=== PATIENT | male | born 2000 | race Caucasian/White ===

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

== ENCOUNTER 2022-06-15 12:53 | Observation (INO) | payer OTHER, SELFPAY ==
[2022-06-15] VITALS (14 sets, daily range): BP systolic 106–141; BP diastolic 60–81; PULSE 54–80; RESP 14–18; TEMP 36.6–37; O2SAT 99–100; BMI 20.5
[2022-06-15 13:16] LABS: Bacteria 0 SEEN /hpf (None Seen); Mucous, Urine 0 SEEN /hpf (<or=2+); Red Blood Cells-Urine 0 SEEN /hpf (0-5); Squamous Epithelial Cells - UA 0 SEEN /hpf (0-5)
[2022-06-15 13:19] LABS: Absolute Lymphocyte Count 1.49 X10^3/uL (0.83-4.51); Absolute Neutrophil Count 14.3 X10^3/uL (2.0-7.7); Basophil# 0.07 X10^3/uL; Basophil% 0.4 % (0-1); Eosinophil# 0.24 X10^3/uL; Eosinophils% 1.3 % (0-5); Hematocrit 48.8 % (40-54); Hemoglobin 16.4 g/dL (13.0-16.5); Lymphocyte # 1.49 X10^3/ul (0.83-4.51); Lymphocyte % 8.2 % (19-41); Mean Corp Hgb Conc 33.6 g/dL (32-36); Mean Corpuscular Hgb 29.5 pg (27.0-32.0); Mean Corpuscular Volume 87.8 fL (80-94); Mean Platelet Vol. 9.5 fl (6.2-12.0); Monocyte# 1.97 X10^3/uL; Monocyte% 10.9 % (0-10); NRBC Flagged by Analyzer 0 % (0-5); Neutrophil # 14.29 X10^3/uL (2.7-7.7); Neutrophil % 78.9 % (47-70); POSITIVE DIFFERENTIAL YES; Platelet Count 272 K/mm3 (150-450); RBC Distribution Width CV 13.2 % (11.6-14.6); RBC Distribution Width SD 42.8 fl (35.1-43.9); Red Blood Count 5.56 M/mm3 (4.6-6.2); White Blood Count 18.1 K/mm3 (4.4-11.0)
[2022-06-15 13:22] LABS: Differential Indicated SCAN CRITERIA MET
[2022-06-15 13:27] LABS: Color, Urine Yellow (Yellow); Glucose, Dipstick Normal (Normal); Ketone-Dipstick 15 mg/dl (Negative); Leukocyte Esterase-Dipstick 25 /ul (Negative); Nitrite-Dipstick Negative (Negative); Occult Blood-Urine Negative /ul (Negative); Protein-Dipstick 30 mg/dl (Negative); Urine Urobilinogen 1 mg/dl (Normal)
[2022-06-15 13:32] LABS: Urine Bilirubin Dipstick 1 mg/dL (Negative); Urine Clarity Clear (Clear)
[2022-06-15 13:33] LABS: White Blood Cells 0-5 SEEN /hpf (0-5)
[2022-06-15 13:35] LABS: Anion Gap 9 (5-15); BUN 14 mg/dL (7-18); BUN/Creat Ratio 11.7 RATIO (10-20); Calcium,Total 9.5 mg/dL (8.5-10.1); Chloride 104 mmol/L (98-107); EST Glomerular Filtration Rate 82 mL/min (>60); Est Glom Filt Rate - Afr Amer 99 mL/min (>60); Glucose 86 mg/dL (74-106); Potassium 3.7 mmol/L (3.5-5.1); Sodium Level 141 mmol/L (136-145)
[2022-06-15 13:40] LABS: Platelet Estimate ADEQUATE (ADEQ); Red Cell Morphology N CYTIC NORMAL (NORM C&C)
--- NOTE | 2022-06-15 14:09 | CT_ITS ---
STUDY: CT ABDOMEN AND PELVIS WITH CONTRAST REASON FOR EXAM: Male, 21 years old. RLQ abd pain RADIATION DOSAGE (If Supplied By Facility): CTDIvol = ( 10.97 ) mGy, DLP = ( 449.34 ) mGycm TECHNIQUE: Transaxial images were obtained from the dome of the diaphragm to the symphysis pubis without oral contrast. IV 100mL Isovue-300 was administered. Sagittal and coronal images were reconstructed. Individualized dose optimization techniques were used for this CT. COMPARISON: Comparison is made with prior examination dated 02/27/2013. FINDINGS: The visualized lung bases are unremarkable. The visualized portions of the heart are within normal limits. Normal liver. Normal gallbladder and extrahepatic biliary system. Normal spleen. Normal pancreas. Normal bilateral adrenal glands. Normal right kidney. Normal left kidney. Normal visualized stomach. Normal small intestine. Normal colon. There is non-visualization of the appendix. Normal abdominal aorta. Normal inferior vena cava. Normal retroperitoneum. Normal urinary bladder. Normal abdominal wall. Straightening of the normal lumbar lordosis. CT/Abdomen/Pelvis W IV Cont ONLY IMPRESSION: Normal enhanced CT of the abdomen and pelvis. Electronically Signed: Sandip العلي MD at 14:42 EDT ,
--- NOTE | 2022-06-15 14:10 | ED.VIS.GI ---
HPI HPI - GI History of Present Illness Chief Complaint: Abd Pain Narrative Narrative: Patient who denies significant past medical history presents with bilateral lower quadrant abdominal pain that began yesterday morning, right greater than left. He denies any fevers but maybe has occasional chills. No nausea or vomiting. He had last normal bowel movement yesterday. He denies any dysuria or hematuria. No true exacerbating or alleviating factors but he states when he stretches that area it may hurt him more. He denies any injury to the area. PFSH PFSH Medical History no medical history Home Medications naproxen 500 mg tablet 500 mg PO BID PRN #20 tabs 02/26/19 [Rx Last Taken Unknown] Allergy/AdvReac Type Severity Reaction Status Date / Time No Known Allergies Allergy Verified 06/15/22 12:53 Surgical History no surgical history Social History Smoking Status: Never smoker ROS ROS ED ROS Narrative Constitutional: No fever, subjective chills. HEENT: No sore throat. No neck pain. No loss of vision. No rhinorrhea. Cardiovascular: No chest pain. No palpitations. No pedal edema. Respiratory: No cough, no shortness of breath. Abdominal: Bilateral lower quadrant abdominal pain, worse abdominal pain and right lower quadrant. No nausea. No vomiting. Genitourinary: No dysuria. No hematuria. Musculoskeletal: No myalgias. No arthralgias. Neurologic: No headaches. No dizziness. No lightheadedness. Skin: No rash. No change in color. Psychiatric: No depression. No anxiety. EXAM Physical Exam Narrative Exam Narrative: Afebrile. Vital signs noted. HEENT: Normocephalic. Atraumatic. PERRL, EOMI. Neck soft and supple. No point tenderness or step off. Cardiovascular: Regular rate and rhythm. No murmurs, rubs, or gallops appreciated. Respiratory: No tachypnea. Lungs clear to auscultation bilaterally. Gastrointestinal: Abdomen soft, mild tenderness to palpation right lower quadrant with normoactive bowel sounds. No rebound or guarding. Negative Rovsing sign. No peritoneal signs. Neurological: Awake. Alert. Nonfocal, nonlateralizing. Skin: No rash. Normal color. No pallor. Musculoskeletal: No pedal edema. Full range of motion extremities. Const Vital Signs: 06/15/22 12:53 06/15/22 15:00 06/15/22 15:39 Temperature 97.8 F 98.5 F Temperature Source Temporal Oral Pulse Rate 63 54 L Respiratory Rate 14 16 18 Blood Pressure 130/81 H 118/69 Blood Pressure Mean 97 85 Blood Pressure Source Monitor Blood Pressure Position Semi-Fowlers Blood Pressure Location Right Arm Pulse Ox 100 99 Oxygen Delivery Method Room Air Room Air MDM MDM MDM Narrative Medical decision making narrative: Initial labs were drawn. He has an elevated white count of 18.1, hemoglobin 16.4 with hematocrit 48.8. Normal platelet count of 272. Electrolyte panel is grossly unremarkable. Urinalysis is negative for infection. Given his leukocytosis and right lower quadrant abdominal pain, I will obtain a CT of the abdomen and pelvis with IV contrast to rule out appendicitis. CT has returned. The appendix is nonvisualized but the CT is otherwise normal. Upon repeat examination, patient is still having pain in the right lower quadrant of his abdomen. Patient was discussed with Dr. Messina who has evaluated the patient in the ED. Patient will be taken to the OR for laparoscopic appendectomy. I ordered morphine for the patient for analgesia. Disposition is admit/to the OR. Patient is in stable condition. Lab Data Attestation: I reviewed the patient's lab results. Labs: Laboratory Results - last 24 hr 06/15/22 06/15/22 06/15/22 13:05 13:05 13:09 WBC 18.1 H RBC 5.56 Hgb 16.4 Hct 48.8 MCV 87.8 MCH 29.5 MCHC 33.6 RDW Std Deviation 42.8 RDW Coeff of Sherley 13.2 Plt Count 272 MPV 9.5 Immature Gran % (Auto) 0.300 Neut % (Auto) 78.9 H Lymph % (Auto) 8.2 L [place] % (Auto) 10.9 H Eos % (Auto) 1.3 Baso % (Auto) 0.4 Absolute Neuts (auto) 14.3 H Absolute Lymphs (auto) 1.49 Nucleated RBC % 0 Diff Path Review May foll Platelet Estimate ADEQUATE RBC Morphology N CYTIC Sodium 141 Potassium 3.7 Chloride 104 Carbon Dioxide 28.0 Anion Gap 9 BUN 14 Creatinine 1.20 Estim Creat Clear Calc 115.00 Est GFR (MDRD) Af Amer 99 Est GFR (MDRD) Non-Af 82 BUN/Creatinine Ratio 11.7 Glucose 86 Calcium 9.5 Urine Color Yellow Urine Clarity Clear Urine pH 6.0 Ur Specific [place] 1.020 Urine Protein 30 H Urine Glucose (UA) Normal Urine Ketones 15 H Urine Occult Blood Negative Urine Nitrite Negative Urine Bilirubin 1 H Urine Urobilinogen 1 H Ur Leukocyte Esterase 25 H Urine RBC 0 SEEN Urine WBC 0-5 SEEN Ur Squamous Epith Cells 0 SEEN Urine Bacteria 0 SEEN Urine Mucus 0 SEEN Radiography Diagnostic Testing: Clinical Impression(s) from Imaging Studies Abdomen/Pelvis CT 06/15/22 14:09 IMPRESSION: Normal enhanced CT of the abdomen and pelvis. Electronically Signed: Sandip العلي MD at 14:42 EDT , Discharge Plan Dx/Rx/DC Orders Clinical Impression: Acute appendicitis, Leukocytosis, Abdominal pain Disposition Disposition: Acute Care Hospital [facility]
--- NOTE | 2022-06-15 14:19 | CM.ED ---
TOÑA Note TOÑA noted on tracker that patient had no PCP. Patient said that he is in the [employer] and they send me to all kinds of doctors. TOÑA provided patient with [facility]. No further issues or concerns voiced at this time. Plan: Resources provided Mandi BOYLE
--- NOTE | 2022-06-15 15:38 | NURSING ---
SURGERY TOSHIA DELANEY
--- NOTE | 2022-06-15 15:41 | HP.PCM.SX_ITS ---
HPI - General HPI Narrative MICHELLE PAGE, is a 21 M who presents with right lower quadrant pain. Patient reports that yesterday he was feeling generalized abdominal pain and that he vomited into the evening. This morning the pain localized to the right lower quadrant he was having chills. He denies any diarrhea or constipation. He says the pain is in the right lower quadrant. It does not radiate. PFSH Medical History no medical history Home Medications naproxen 500 mg tablet 500 mg PO BID PRN #20 tabs 02/26/19 [Rx Last Taken Unknown] Allergy/AdvReac Type Severity Reaction Status Date / Time No Known Allergies Allergy Verified 06/15/22 12:53 Surgical History no surgical history Social History Smoking Status: Never smoker ROS Constitutional Constitutional: Reports chills; Denies anorexia, fatigue or fever(s) Eyes Eyes: Denies blurry vision ENT HEENT: Denies abnormal hearing Cardiovascular Cardiovascular: Denies chest pain Respiratory/Chest Respiratory/Chest: Denies cough, dyspnea or wheezing Gastrointestinal Gastrointestinal: Reports abdominal pain, nausea and vomiting; Denies constipation, diarrhea or dysphagia Genitourinary Genitourinary: Denies change in urinary stream Musculoskeletal Musculoskeletal: Denies abnormal gait Integumentary Integumentary: Denies jaundice Neurologic Neurologic: Denies abnormal gait Psychiatric Psychiatric: Denies anxiety Endocrine Endocrinology: Denies flushing Hematologic/Lymphatic Hematologic/Lymphatic: Denies easy bleeding Vital Signs Vital Signs Vital Signs: 06/15/22 12:53 06/15/22 15:00 Temperature 97.8 F Temperature Source Temporal Pulse Rate 63 Respiratory Rate 14 16 Blood Pressure 130/81 H Blood Pressure Mean 97 Pulse Ox 100 Oxygen Delivery Method Room Air Weight Weight: 182 lb 8.684 oz Body Mass Index (BMI) 20.5 Physical Exam Const oriented x3 Resp normal respiratory effort Cardio regular rate and regular rhythm GI soft to palpation Palpation: tender RLQ and Rovsing's sign Extremity normal to inspection Results Lab / Micro Data Result Diagrams: 06/15/22 13:05 06/15/22 13:05 Labs: Laboratory Results - last 24 hr 06/15/22 13:05: WBC 18.1 H, RBC 5.56, Hgb 16.4, Hct 48.8, MCV 87.8, MCH 29.5, MCHC 33.6, RDW Std Deviation 42.8, RDW Coeff of Sherley 13.2, Plt Count 272, MPV 9.5, Immature Gran % (Auto) 0.300, Neut % (Auto) 78.9 H, Lymph % (Auto) 8.2 L, [place] % (Auto) 10.9 H, Eos % (Auto) 1.3, Baso % (Auto) 0.4, Absolute Neuts (auto) 14.3 H, Absolute Lymphs (auto) 1.49, Nucleated RBC % 0, Diff Path Review January foll, Platelet Estimate ADEQUATE, RBC Morphology N CYTIC 06/15/22 13:05: Sodium 141, Potassium 3.7, Chloride 104, Carbon Dioxide 28.0, Anion Gap 9, BUN 14, Creatinine 1.20, Estim Creat Clear Calc 115.00, Est GFR (MDRD) Af Amer 99, Est GFR (MDRD) Non-Af 82, BUN/Creatinine Ratio 11.7, Glucose 86, Calcium 9.5 06/15/22 13:09: Urine Color Yellow, Urine Clarity Clear, Urine pH 6.0, Ur Specific [place] 1.020, Urine Protein 30 H, Urine Glucose (UA) Normal, Urine Ketones 15 H, Urine Occult Blood Negative, Urine Nitrite Negative, Urine Bilirubin 1 H, Urine Urobilinogen 1 H, Ur Leukocyte Esterase 25 H, Urine RBC 0 SEEN, Urine WBC 0-5 SEEN, Ur Squamous Epith Cells 0 SEEN, Urine Bacteria 0 SEEN, Urine Mucus 0 SEEN Radiology Impression Abdomen/Pelvis CT 06/15/22 14:09 IMPRESSION: Normal enhanced CT of the abdomen and pelvis. Electronically Signed: Sandip العلي MD at 14:42 EDT , Assessment & Plan Assessment/Plan (1) Acute appendicitis: PLAN: Patient has elevated white count and story consistent with acute appendicitis. CT scan did not visualize the appendix. This is likely due to his thin body habitus. Patient has nausea vomiting and elevated white count with positive Rovsing side and migration of abdominal pain to right lower quadrant. All of these things are consistent with acute appendicitis and I recommended laparoscopic appendectomy. I discussed the procedure in detail with the patient. I discussed the risks including but limited to bleeding, infection, injury to surrounding organs such as the bowel, bladder, ureter. Patient understands the risks and is willing to proceed with laparoscopic appendectomy. He will be given antibiotics and taken to surgery this evening. Tyson Messina MD Pager: [facility] [address] [place] [address] Office:
[2022-06-15] MEDS: Morphine 4 MG/ML Syringe IV (15:47)
--- NOTE | 2022-06-15 16:00 | APP_PTH ---
PATIENT: MICHELLE PAGE LOC: MS3 U#:[id number] AGE/SX: 21/M ROOM: MS311 RE06/15/[address]: Dr. Tyson Messina MD : 2000 BED: 1 DIS: 06/16/2022 SPEC #: [id number] RECD: 06/18/22 07:29 STATUS: EARL GREGGAnna #: [id number] MIAN: 06/15/22 16:[address]: Tyson Messina DEPT: SURGICAL PATHOLOGY RECD BY: Sebastien Dixon ENTERED: 06/18/22 08:08 SP TYPE: APPENDIX OT DR: No Primary Care Phys Tissues: Appendix, NOS Procedures: Surgery Specimen Level III HEADER OPERATION: Laparoscopic appendectomy PRE-OP DIAGNOSIS: Acute appendicitis TISSUE SUBMITTED: Appendix MICROSCOPIC DIAGNOSIS Appendix, appendectomy: Acute ruptured appendicitis and periappendicitis. ZAKIA:[email or web address] 06/19/2022 MICROSCOPIC DESCRIPTION Slides are reviewed. GROSS DESCRIPTION Received in fixative is one container labeled with the patient's name and designated appendix. The specimen consists of a J-shaped appendix measuring 6.5 cm in length and up to 1 cm in diameter. The attached periappendiceal adipose tissue measures up to 1 cm in width. The serosal surface is covered with akbar, purulent exudate. No obvious perforation is identified. The lumen does not contain any fecalith. Arabic Translator sections are submitted in one cassette. / SJ:rg 06/18/2022 :2 CPT: 20821
--- NOTE | 2022-06-15 16:46 | OP.PCM_ITS ---
Report of Operation Date of Procedure: 06/15/22 Pre-Operative Diagnosis: Acute appendicitis Post-Operative Diagnosis: Same Surgery/Procedure Performed:: Laparoscopic appendectomy Description of Surgical Findings:: Inflamed appendix, wound class III Specimen's removed: Appendix Description of Procedure: The patient was brought into the operating room and general anesthesia was induced. The left arm was tucked and the abdomen was prepped and draped in usual sterile fashion. A small midline incision was made superior to the umbilicus and deepened to the level of the fascia. The fascia was elevated and incised. The peritoneum was also elevated and incised. A finger sweep was performed and a balloon trocar was placed into the abdomen and inflated. The abdomen was insufflated to 15 mmHg and the camera was inserted and the abdomen was inspected for any injuries upon entering the abdomen. There were none. The patient was placed in Trendelenburg position and a 5 mm ports placed in the left lower quadrant and suprapubic areas under direct visualization. Next using atraumatic bowel graspers the appendix was identified. The appendix was grasped and elevated and Enseal was used to take down the mesoappendix. A stapler was used to come across the base of the appendix. The appendix was then placed in Endo Catch bag and removed through the umbilical incision. The staple line was inspected and found to be hemostatic and intact. The 2 5 mm ports are removed under direct visualization. The balloon trocar was deflated and removed and all the air was removed from the abdomen. The umbilical incision fascia was closed with an 0 Vicryl [id number] suture. The incisions were then irrigated with saline and dried. Local anesthetic was injected into the incision sites. The skin incisions were then closed with interrupted 4-0 Monocryl suture and Steri- Strips. Bandages were applied and the patient was awoken and taken to PACU in stable condition. Patient tolerated the procedure well. Admit VTE Documentation VTE Mechan Device Prophylaxis: SCD's
[2022-06-15] MEDS: 0.9% Normal Saline 1,000 ML 60 ML IV (17:04)
[2022-06-15] MEDS: Acetaminophen 325 MG Tablet 650 MG PO (19:16)
[2022-06-15] MEDS: oxyCODONE 5 MG Tablet PO ×2 (19:17→22:37)
[2022-06-16] MEDS: Ondansetron 4 MG/2 ML Vial IV (00:13)
[2022-06-16 02:09] VITALS: BP 122/64; PULSE 54; RESP 16; TEMP 36.8; O2SAT 100
[2022-06-16 06:00] VITALS: BP 109/56; PULSE 60; RESP 16; TEMP 37.2; O2SAT 99
[2022-06-16 06:09] VITALS: BP 109/56; PULSE 60; RESP 16; TEMP 37.2; O2SAT 99
--- NOTE | 2022-06-16 08:18 | PN.SURG_ITS ---
Subjective Subjective Patient is doing well with no issues. Objective Data Objective Data Vital Signs: Vital Signs Temp Pulse Resp BP Pulse Ox O2 Del Method 98.9 F 60 16 109/56 L 99 Room Air 06/16/22 06:09 06/16/22 06:09 06/16/22 06:09 06/16/22 06:09 06/16/22 06:09 06/16/22 06:09 Oxygen Delivery Method Room Air Weight: 182 lb 8.684 oz Body Mass Index (BMI) 20.5 Intake & Output: Intake and Output for Last 24 Hours 06/14/22 06/15/22 06/16/22 23:59 23:59 23:59 Intake Total 50 / 290 240 / 240 Output Total 500 / 500 Balance 50 / 290 -260 / -260 Lab / Micro Data Result Diagrams: 06/15/22 13:05 06/15/22 13:05 Labs: Laboratory Results - last 24 hr 06/15/22 13:05: WBC 18.1 H, RBC 5.56, Hgb 16.4, Hct 48.8, MCV 87.8, MCH 29.5, MCHC 33.6, RDW Std Deviation 42.8, RDW Coeff of Sherley 13.2, Plt Count 272, MPV 9.5, Immature Gran % (Auto) 0.300, Neut % (Auto) 78.9 H, Lymph % (Auto) 8.2 L, [place] % (Auto) 10.9 H, Eos % (Auto) 1.3, Baso % (Auto) 0.4, Absolute Neuts (auto) 14.3 H, Absolute Lymphs (auto) 1.49, Nucleated RBC % 0, Diff Path Review January foll, Platelet Estimate ADEQUATE, RBC Morphology N CYTIC 06/15/22 13:05: Sodium 141, Potassium 3.7, Chloride 104, Carbon Dioxide 28.0, Anion Gap 9, BUN 14, Creatinine 1.20, Estim Creat Clear Calc 115.00, Est GFR (MDRD) Af Amer 99, Est GFR (MDRD) Non-Af 82, BUN/Creatinine Ratio 11.7, Glucose 86, Calcium 9.5 06/15/22 13:09: Urine Color Yellow, Urine Clarity Clear, Urine pH 6.0, Ur Specific [place] 1.020, Urine Protein 30 H, Urine Glucose (UA) Normal, Urine Ketones 15 H, Urine Occult Blood Negative, Urine Nitrite Negative, Urine Bilirubin 1 H, Urine Urobilinogen 1 H, Ur Leukocyte Esterase 25 H, Urine RBC 0 SEEN, Urine WBC 0-5 SEEN, Ur Squamous Epith Cells 0 SEEN, Urine Bacteria 0 SEEN, Urine Mucus 0 SEEN Radiography Diagnostic Testing: Radiology Impression Abdomen/Pelvis CT 06/15/22 14:09 IMPRESSION: Normal enhanced CT of the abdomen and pelvis. Electronically Signed: Sandip العلي MD at 14:42 EDT , Physical Exam Const oriented x3 Resp normal respiratory effort GI soft to palpation and non-tender Assessment & Plan Assessment/Plan (1) Acute appendicitis: PLAN: Patient doing well for laparoscopic appendectomy. He is tolerating a diet I will discharge him home. Tyson Messina MD Pager: [facility] [address] [place] [address], [address] [place] [address] Office:
--- NOTE | 2022-06-16 08:18 | PCM.DC.SUM ---
Providers Date of Admission: 06/15/22 Primary Care Physician: No Primary Care Phys Reason For Visit: ACUTE APPENDICITIS Diagnosis Discharge Diagnosis (1) Acute appendicitis: Status: Acute Code(s): K35.80 - Unspecified acute appendicitis Plan: Patient doing well for laparoscopic appendectomy. He is tolerating a diet I will discharge him home. Tyson Messina MD Pager: [facility] [address] [place] [address], [address] [place] [address] Office: Medications at Discharge Home Medications naproxen 500 mg tablet 500 mg PO BID PRN #20 tabs 02/26/19 acetaminophen 325 mg tablet (Tylenol) 650 mg PO Q4H PRN PRN P/F #0 tabs 06/16/22 oxycodone 5 mg tablet 5 - 10 mg PO Q4H PRN PRN Pain Score 4-10 5 days #20 tabs 06/16/22 Hospital Course Operations appendectomy Procedures None Summary of Care Provided Hospital Course: Patient was admitted from the emergency room with acute appendicitis and taken for laparoscopic appendectomy yesterday and found to have an inflamed appendix. Overnight he tolerated diet and pain was well controlled on oral medication. I will discharge him home today. He will follow-up in 2 weeks. Weight / BMI Weight Weight: 182 lb 8.684 oz Body Mass Index (BMI) 20.5 ABG / Lab / Microbiology Data Result Diagrams: 06/15/22 13:05 06/15/22 13:05 Laboratory: Laboratory Results - last 24 hr 06/15/22 13:05: WBC 18.1 H, RBC 5.56, Hgb 16.4, Hct 48.8, MCV 87.8, MCH 29.5, MCHC 33.6, RDW Std Deviation 42.8, RDW Coeff of Sherley 13.2, Plt Count 272, MPV 9.5, Immature Gran % (Auto) 0.300, Neut % (Auto) 78.9 H, Lymph % (Auto) 8.2 L, Phillips % (Auto) 10.9 H, Eos % (Auto) 1.3, Baso % (Auto) 0.4, Absolute Neuts (auto) 14.3 H, Absolute Lymphs (auto) 1.49, Nucleated RBC % 0, Diff Path Review May foll, Platelet Estimate ADEQUATE, RBC Morphology N CYTIC 06/15/22 13:05: Sodium 141, Potassium 3.7, Chloride 104, Carbon Dioxide 28.0, Anion Gap 9, BUN 14, Creatinine 1.20, Estim Creat Clear Calc 115.00, Est GFR (MDRD) Af Amer 99, Est GFR (MDRD) Non-Af 82, BUN/Creatinine Ratio 11.7, Glucose 86, Calcium 9.5 06/15/22 13:09: Urine Color Yellow, Urine Clarity Clear, Urine pH 6.0, Ur Specific [place] 1.020, Urine Protein 30 H, Urine Glucose (UA) Normal, Urine Ketones 15 H, Urine Occult Blood Negative, Urine Nitrite Negative, Urine Bilirubin 1 H, Urine Urobilinogen 1 H, Ur Leukocyte Esterase 25 H, Urine RBC 0 SEEN, Urine WBC 0-5 SEEN, Ur Squamous Epith Cells 0 SEEN, Urine Bacteria 0 SEEN, Urine Mucus 0 SEEN Radiography Diagnostic Testing: Radiology Impression Abdomen/Pelvis CT 06/15/22 14:09 IMPRESSION: Normal enhanced CT of the abdomen and pelvis. Electronically Signed: Sandip العلي MD at 14:42 EDT , D/C Instructions Discharge Diet: Light diet - advance as tolerated Discharge Activity: May Not Drive (for 2-3 days or while taking narcotic pain medications) May shower in (days): 1 Lifting Restrictions: 15 lbs for 2 weeks Additional Activity Instructions: Ok to return to light duty when you feel up to it. No strenuous activity or normal work activity for 2 weeks Call your doctor if your incision/area has: Continuous Slow Oozing, Sudden Increased Bleeding, Increased Pain/ Swelling, Increased Redness and Foul Smelling Discharge Call your doctor if you observe: Fever of 101 or Higher Suture Line Care: Avoid Pulling/Pushing and Avoid Pinching/Bending Remove Dressing in: 2 days Cleanse incision/area with: Soap & Water Additional Instructions: Keep dressing clean and dry. Change or remove dressing in 2 days. Leave steri strips for 1 week. May protect with a gauze bandaid. Please Follow Up With: Tyosn Messina MD When: Please call to schedule 2 week follow up appointment at [phone] Meaningful Use Info Meaningful Use Diagnoses (Choose all that apply): None applicable Discharge Plan Admission Admit Date/Time: 06/15/22 15:44 Attending Provider: Tyson Messina Primary Care Provider: Care Physician,No Primary Discharge Orders/Prescriptions Prescriptions: New acetaminophen [Tylenol] 325 mg Tablet 650 mg PO Q4H PRN PRN (Reason: P/F) Qty: 0 0RF oxycodone 5 mg Tablet 5 - 10 mg PO Q4H PRN PRN (Reason: Pain Score 4-10) 5 Days Qty: 20 0RF Continued naproxen 500 MG tablet 500 mg PO BID PRN Qty: 20 0RF Referrals / Follow Up: Care Physician,No Primary [Primary Care Provider] - Disposition Disposition (needs filled in before D/C Order can be placed): Home, Self Care
[2022-06-16] MEDS: oxyCODONE 5 MG Tablet PO (08:23)
[2022-06-16 08:48] VITALS: BP 106/55; PULSE 88; RESP 16; TEMP 37; O2SAT 100
[2022-06-18 13:16] LABS: Pathologist Review Reviewed
== END 2022-06-16 08:56 | disposition home or self-care (01) ==
LOC: ED 15:42 → MS3 15:50
PROVIDERS: Admitting Provider Surgery; Emergency Provider Emergency Medicine; Visit Provider Surgery
PROC: 0DTJ4ZZ Resection of Appendix, Percutaneous Endoscopic Approach (ICD-10-PCS; CPT 44970; principal; 2022-06-15 15:40)
DX: K35.80 Unspecified acute appendicitis (principal)
CPT/HCPCS: 44970; 00840; 74177; 80048; 81001; 85025; 88304; 96374; 96375; 99218; 99251; 99284; J7030; Q9967; A4216; C1760; G0378; G0463; J2405; J3490

== ENCOUNTER 2023-05-20 18:34 | Emergency (ER) | payer OTHER, SELFPAY ==
[2023-05-20 18:37] VITALS: BP 137/84; PULSE 96; RESP 18; TEMP 36.6; O2SAT 100; BMI 24.3
--- NOTE | 2023-05-20 19:35 | RAD_ITS ---
STUDY: X-RAY - LEFT HAND, ATTENTION RING FINGER REASON FOR EXAM: Male, 22 years old. ring finger injury TECHNIQUE: 3 view(s) of the finger were obtained. COMPARISON: None. FINDINGS: Normal metacarpal head. Normal metacarpophalangeal joint. Normal proximal phalanx. Normal middle phalanx. Nondisplaced comminuted fracture distal tuft distal phalanx ring finger Normal proximal interphalangeal joint. Normal distal interphalangeal joint. RAD/Finger(s) Min 2 Views IMPRESSION: Fracture fourth distal phalanx Electronically Signed: Adal Lara MD at 20:42 EDT ,
--- NOTE | 2023-05-20 20:37 | EDS_ITS ---
HPI History of Present Illness Chief Complaint: Upper Extremity Injury Narrative Narrative: 22-year-old male presenting with pain in the left distal ring finger. Patient states that he was using a hammer and struck his left ring finger. He is right- hand dominant. He has bruising and swelling to the left ring finger. This is only at the distal aspect. He states it happened this morning. He states he was helping his friend cover roof which is fairly emergent and waited till now t o have it evaluated. Patient states that it is more swollen and bruised it was this morning. PFSH PFSH Home Medications naproxen 500 mg tablet 500 mg PO BID PRN #20 tabs 02/26/19 [Rx Last Taken Unknown] acetaminophen 325 mg tablet (Tylenol) 650 mg (2 x 325 mg) PO Q4H PRN PRN P/F #0 tabs 06/16/22 [Rx Last Taken Unknown] oxycodone 5 mg tablet 5 - 10 mg (1 - 2 x 5 mg) PO Q4H PRN PRN Pain Score 4-10 5 days #20 tabs 06/16/22 [Rx Last Taken Unknown] Allergy/AdvReac Type Severity Reaction Status Date / Time No Known Allergies Allergy Verified 05/20/23 18:36 Surgical History Hx of appendectomy Social History Smoking Status: Current every day smoker tobacco type: cigarettes, cigars and e-cigarettes ROS ROS ED Constitutional Constitutional ED: Denies chills, fever(s) or sweats Eyes Eyes: Denies blurry vision or change in vision ENT ENT ED: Denies ear pain or sore throat Cardiovascular Cardiovascular: Denies chest pain, palpitations or racing heartbeat Respiratory/Chest Respiratory/Chest: Denies cough, dyspnea or sputum Gastrointestinal Gastrointestinal: Denies abdominal pain, constipation, diarrhea, nausea or vomiting Genitourinary Genitourinary ED: Denies dysuria, hematuria or urinary frequency Musculoskeletal Musculoskeletal: Denies arthralgias, myalgias or neck pain Integumentary Reports other Details: Bruising and swelling to left ring finger ; Denies abscess, Abrasions or rash Neurologic Neurologic: Denies headache(s), paresthesias or weakness Psychiatric Psychiatric: Denies anxiety, depression, suicidal ideation or suicidal thoughts Endocrine Endocrinology: Denies polydipsia or polyuria EXAM Physical Exam Const Vital Signs: 05/20/23 18:37 Temperature 97.9 F Temperature Source Temporal Pulse Rate 96 Respiratory Rate 18 Blood Pressure 137/84 H Blood Pressure Mean 101 Pulse Ox 100 Oxygen Delivery Method Room Air Positive well nourished General Appearance ED: NAD Eyes PERRL and EOMs intact bilaterally Resp normal respiratory effort Cardio regular rate and regular rhythm Extremity Extremity Narrative: Bruising and swelling noted to the left ring finger distally at the DIP distal. There is a small subungual hematoma which does not to be trephinated. Neurovascular intact. Neuro oriented x3 and CN's II-XII intact bilaterally Sensorium / Orientation: alert Motor Exam: strength 5/5 throughout Psych mental status grossly normal MDM MDM MDM Narrative Medical decision making narrative: Patient presenting with bruising and swelling to the left ring finger. Differential includes finger contusion, subungual hematoma, tuft fracture. Patient given ibuprofen 600 mg. X-ray of the left hand shows a tuft fracture on my interpretation of the left ring finger. Radiology interprets this and agrees. Patient put in AlumaFoam splint. He is counseled to ice and elevate. Tylenol ibuprofen for pain. He is given orthopedic follow-up. Impression: 1. Left ring finger tuft fracture Discharge Plan Triage Chief Complaint: Upper Extremity Injury ED Provider: Jimmy Sharp Dx/Rx/DC Orders Instructions: ED Fracture, Finger, Closed Prescriptions: No Action naproxen 500 MG tablet 500 mg PO BID PRN Qty: 20 0RF acetaminophen [Tylenol] 325 mg Tablet 650 mg PO Q4H PRN PRN (Reason: P/F) Qty: 0 0RF oxycodone 5 mg Tablet 5 - 10 mg PO Q4H PRN PRN (Reason: Pain Score 4-10) 5 Days Qty: 20 0RF Primary Care Provider: Care Physician,No Primary Referrals: Vinod Olivarez DO [Med Staff - Active Staff] - 3-5 Days Care Physician,No Primary [Primary Care Provider] - Disposition Disposition: Home, Self Care
[2023-05-20] MEDS: Ibuprofen 600 MG Tablet PO (20:54)
== END 2023-05-20 20:59 | disposition home or self-care (01) ==
PROVIDERS: Emergency Provider Student in an Organized Health Care Education/Training Program; Visit Provider Student in an Organized Health Care Education/Training Program
DX: S62.635A Displaced fracture of distal phalanx of left ring finger, initial encounter for closed fracture (principal); F17.290 Nicotine dependence, other tobacco product, uncomplicated; F17.210 Nicotine dependence, cigarettes, uncomplicated; Z90.49 Acquired absence of other specified parts of digestive tract; W22.8XXA Striking against or struck by other objects, initial encounter; Y93.89 Activity, other specified
CPT/HCPCS: 73140; 99283

== ENCOUNTER 2023-10-10 15:30 | Observation (INO) | payer OTHER, SELFPAY ==
[2023-10-10 15:31] VITALS: BP 146/71; PULSE 72; RESP 16; TEMP 36.2; O2SAT 98
--- OUTSIDE RECORDS SUMMARY | 2023-10-10 16:30 | XMS RPT_ITS | CCD ---
Author Name Unknown Address [facility] [address] [place] [address] Organization [facility] Care Team Providers Care Chief Power Dispatcher Name Role Phone DAVID HAM Unavailable Unavailable REFERRED, SELF Unavailable Unavailable DAVID HAM Unavailable Unavailable DAVID HAM Unavailable Unavailable REFERRED, SELF Unavailable Unavailable DAVID HAM Unavailable Unavailable KAVON, DR SOPHIA Roth Admitting Unavaila ble KAVON, DR SOPHIA Roth Attending Unavaila ble KAVON, DR SOPHIA Roth Primary Care Unavaila ble Allergies Allergy Classification Reported Allergen(s) Allergy Type Date of Onset Reaction(s) Facility (1 source) vancomycin; Translations: [VANCOMYCIN] Drug Allergy 11-19-2013 [facility] Repository Results Test Name Value Interpretation Reference Range Facil ity Encounters Encounter Date Encounter Type Care Provider Facility Start: 06-05-2022 End: 06-05-2022 Emergency department patient visit DR SOPHIA JACOBSON [facility] Start: 09-10-2017 End: 09-10-2017 [facility] Start: 04-15-2017 End: 04-15-2017 Ambulatory [facility] Payers Date Payer Category Payer Unknown [id number] Private Health Insurance [id number] Unknown [id number] Unknown [id number] Summary Purpose Family History No Family History Records FoundNo Family History Records Found Advance Directives No Advanced Directives Records FoundNo Advanced Directives Records Found Additional Source Comments (unrecognized sect ion and content) No Status Records FoundNo Status Records Found INFORMATION SOURCE (unrecogn ized section and content) DATE CREATED AUTHOR AUTHOR'S ORGANHU ATION 06/06/2022 [facility] FOR RECORDS PERTAINING TO PATIENTS WHO ARE OR HAVE BEEN ENROLLED IN A CHEMICAL DEPENDENCY/SUBSTANCEABUSE PROGRAM, SOME INFORMATION MAY BE OMITTED. This clinical summary was aggregated from multiple sources. Caution should be exercised in using it in the provision of clinical care. This summary normalizes information from multiple sources, and as a consequence, information in this document may materially change the coding, format and clinical context of patient data. In addition, data may be omitted in some cases. CLINICAL DECISIONS SHOULD BE BASED ON THE PRIMARY CLINICAL RECORDS. [facility]. provides no warranty or guarantee of the accuracy or completeness of information in this document.
--- NOTE | 2023-10-10 17:18 | MRI_ITS ---
STUDY: MRI THORACIC SPINE WITHOUT CONTRAST REASON FOR EXAM: Male, 23 years old. back pain after lifting 120# radiaties into legs bilaterally R and gt;L TECHNIQUE: Standardized fat and water weighted pulse sequences were obtained in the sagittal and axial planes. COMPARISON: None. FINDINGS: Normal kyphosis of the thoracic spine. There is no substantial scoliosis. No acute fracture or subluxation. No evidence for intramedullary bone marrow edema or infiltrative process. . T1-2, T2-3, T3-4, T4-5, T5-6, T6-7, T7-8, T8-9, T9-10, T10-11, T11-12: Normal endplates. Normal disc hydration, heights and morphology of the corresponding intervertebral discs. Normal central canal and intervertebral neural foramina at the corresponding levels. Normal visualized thoracic cord. Normal conus medullaris that terminates at T12-L1 The soft tissue structures are unremarkable. MRI/Spine Thoracic (Routine) IMPRESSION: Normal unenhanced MRI examination of the thoracic spine. Electronically Signed: Delfin Bryant MD at 19:30 EST ,
--- NOTE | 2023-10-10 17:18 | US_ITS ---
STUDY: ULTRASOUND - URINARY BLADDER REASON FOR EXAM: Male, 23 years old. back pain TECHNIQUE: Ultrasound evaluation of the urinary bladder was performed with real-time and static akbar-scale imaging. COMPARISON: None. FINDINGS: There is no right UVJ calculus. There is a visualized right ureteral jet . There is no left UVJ calculus. There is a visualized left ureteral jet . The distended volume of the urinary bladder is 440.8 ml. The empty volume of the urinary bladder is 2.5 ml. The bladder wall is within normal limits. The bladder wall measures 0.22. There is no demonstrated bladder wall mass lesion. There are no demonstrated bladder calculi. US/Post Void Residual Bladder IMPRESSION: Normal ultrasound of the urinary bladder. Electronically Signed: Delfin Bryant MD at 19:43 EST ,
--- NOTE | 2023-10-10 17:18 | MRI_ITS ---
STUDY: MRI LUMBAR SPINE WITHOUT CONTRAST REASON FOR EXAM: Male, 23 years old. pain after lifting 120# radiaties into legs bilaterally R and gt;L TECHNIQUE: Standardized fat and water weighted pulse sequences were obtained in the sagittal and axial planes. COMPARISON: None FINDINGS: T12-L1: Normal endplates. Normal disc height, hydration and morphology. Normal bilateral facet joints. Normal central canal and bilateral lateral recesses. Normal bilateral intervertebral neural foramina. Normal lumbar lordosis. There is no substantial scoliosis. Normal conus medullaris that terminates at the L1-2: Normal endplates. Normal disc height, hydration and morphology. Normal bilateral facet joints. Normal central canal and bilateral lateral recesses. Normal bilateral intervertebral neural foramina. L2-3: Normal endplates. Normal disc height, hydration and morphology. Normal bilateral facet joints. Normal central canal and bilateral lateral recesses. Normal bilateral intervertebral neural foramina. L3-4: Normal endplates. Normal disc height, hydration and normal morphology.. Normal bilateral facet joints. Normal central canal and bilateral lateral recesses. Normal bilateral intervertebral neural foramina. L4-5: Normal endplates. Normal disc height, hydration and minor annular bulge. Normal bilateral facet joints. Normal central canal and bilateral lateral recesses. Normal bilateral intervertebral neural foramina. L5-S1: Normal endplates. Normal disc height, desiccation and mild annular bulge with moderate sized central/left paracentral disc extrusion with inferior migration of disc fragment. Normal bilateral facet joints. Mild narrowing of the central canal. Normal bilateral lateral recesses. Mild bilateral neural foraminal encroachment Normal visualized sacral ala. Normal visualized paraspinous soft tissue structures. MRI/Spine Lumbar (Routine) IMPRESSION: No evidence for acute fracture or subluxation. Minor annular bulge at L4-5 without spinal stenosis. Mild annular bulge with moderate sized central/left paracentral disc protrusion at L5-S1 creating mild spinal stenosis. Findings as above Electronically Signed: Delfin Bryant MD at 19:38 EST ,
--- NOTE | 2023-10-10 17:31 | EDS_ITS ---
HPI History of Present Illness Chief Complaint: Back Narrative Narrative: 23-year-old male presenting with back pain. He states he has a history of some minor back issues but never anything states severe. Patient states that about 11 AM today he was working and lifted up 110 pound piece of concrete by bending over at the waist and picking it up and then twisting to the side to move it. He states he felt a twinge in his lower back and then noted that it started to hurt. He states he sat down to stretch and stretch for a while. He states that his symptoms seem to improve after a while of stretching. He states that he got back up to go back to work and picked up a shovel. He used a shovel to strike into the dirt and the shovel hit the ground he felt a sharp twinge in his back and states that his leg started to feel numb and tingly. Denies any direct trauma to the back. No loss of bladder or bowel control. No saddle anesthesia or paresthesia. Patient is able to walk with some assistance. Patient states he went to his chiropractor who sent him in for imaging due to the patient's pain. [facility] Home Medications NK 10/10/23 [History Last Taken Unknown] Allergy/AdvReac Type Severity Reaction Status Date / Time No Known Allergies Allergy Verified 10/10/23 15:30 Surgical History Hx of appendectomy Social History Smoking Status: Current every day smoker tobacco type: cigarettes, cigars and e-cigarettes ROS ROS ED Constitutional Constitutional ED: Denies chills, fever(s) or sweats Eyes Eyes: Denies blurry vision or change in vision ENT ENT ED: Denies ear pain or sore throat Cardiovascular Cardiovascular: Denies chest pain, palpitations or racing heartbeat Respiratory/Chest Respiratory/Chest: Denies cough, dyspnea or sputum Gastrointestinal Gastrointestinal: Denies abdominal pain, constipation, diarrhea, nausea or vomiting Genitourinary Genitourinary ED: Denies dysuria, hematuria or urinary frequency Musculoskeletal Musculoskeletal: Reports back pain; Denies arthralgias, myalgias or neck pain Integumentary Denies abscess, Abrasions or rash Neurologic Neurologic: Denies headache(s), paresthesias or weakness Psychiatric Psychiatric: Denies anxiety, depression, suicidal ideation or suicidal thoughts Endocrine Endocrinology: Denies polydipsia or polyuria EXAM Physical Exam Const Vital Signs: 10/10/23 15:31 Temperature 97.2 F L Temperature Source Temporal Pulse Rate 72 Respiratory Rate 16 Blood Pressure 146/71 H Blood Pressure Mean 96 Pulse Ox 98 Oxygen Delivery Method Room Air Positive well nourished HEENT Reports moist mucous membranes Negative for trauma Eyes PERRL and EOMs intact bilaterally Resp normal respiratory effort Cardio regular rate and regular rhythm GI GI Narrative: Normal rectal tone. Normal perineal sensation. Back/Spine Back/Spine Narrative: There is minimal tenderness to palpation of the lower back. There is no midline deformities or step-offs. There is minimal lumbar paraspinal musculature tenderness bilaterally. Extremity normal to inspection Extremity Narrative: Neurovascularly intact throughout bilateral lower extremities. Brisk cap refill to all 5 toes. DP/PT is +2 of 4 and symmetric bilaterally. General Extremety ED: Negative for edema or tenderness General Extremity: Negative for edema Neuro oriented x3 and no sensory deficits noted Sensorium / Orientation: alert Motor Exam: strength 5/5 throughout Deep Tendon Reflexes: Rt Patellar (L4): 2+, Lt Patellar (L4): 2+, Rt Ankle (S1): 2+ and Lt Ankle (S1): 2+ Deep Tendon Reflexes Back: Rt Patellar (L4): 2+, Lt Patellar (L4): 2+, Rt Ankle (S1): 2+ and Lt Ankle (S1): 2+ Psych mental status grossly normal Skin no rashes or lesions noted and no wounds MDM MDM MDM Narrative Medical decision making narrative: Patient presenting with acute onset back pain. He states he has some history of mild back injuries in the past but never anything this severe. On examination patient has normal rectal tone. Normal perianal sensation. Will obtain postvoid residual. Patient medicated with IM [place], IV Toradol and Decadron. After discussion with the patient and his father they are very concerned that his brother had a similar presentation and had to go to emergent surgery. We will attempt to obtain some imaging although I do not see any evidence of cauda equina syndrome. Post were residual obtained. This is normal. Lumbar spine MRI indicates an L4-L5 mild annular bulge with outs minus stenosis and a mild annular bulge with moderate-sized central/left paracentral disc protrusion L5-S1 creating a minus spinal stenosis. This was discussed with Dr. Solis. Since the patient is still in pain and having difficulty ambulating secondary to pain he will be admitted to the hospital. Discussed with the hospitalist. Patient will be pain control and will see Dr. Solis in the hospital. Impression: 1. acute lumbar disc bulge 2. Intractable back pain Radiography Diagnostic Testing: Clinical Impression(s) from Imaging Studies Abdomen/Bladder Ultrasound 10/10/23 17:18 IMPRESSION: Normal ultrasound of the urinary bladder. Electronically Signed: Delfin Bryant MD at 19:43 EST , Lumbar Spine MRI 10/10/23 17:18 IMPRESSION: No evidence for acute fracture or subluxation. Minor annular bulge at L4-5 without spinal stenosis. Mild annular bulge with moderate sized central/left paracentral disc protrusion at L5-S1 creating mild spinal stenosis. Findings as above Electronically Signed: Delfin Bryant MD at 19:38 EST , Thoracic Spine MRI 10/10/23 17:18 IMPRESSION: Normal unenhanced MRI examination of the thoracic spine. Electronically Signed: Delfin Bryant MD at 19:30 EST , Discharge Plan Triage Chief Complaint: Back ED Provider: Jimmy Sharp Dx/Rx/DC Orders Prescriptions: No Action NK Primary Care Provider: Care Physician,No Primary Referrals: Care Physician,No Primary [Primary Care Provider] -
[2023-10-10] MEDS: Orphenadrine 60 MG/2 ML Ampul IM (17:33)
[2023-10-10] MEDS: Ketorolac 15 MG/ML Vial IV (17:33)
[2023-10-10] MEDS: dexAMETHasone 10 MG/ML Vial IV (17:33)
--- NOTE | 2023-10-10 19:58 | HP.PCM_ITS ---
HPI - General General Date of Admission: 10/10/23 Date of Service: 10/10/23 Chief Complaint: back pain HPI Narrative MICHELLE PAGE, is a 23 M with a PMH as outlined who presents via [facility] ED on 10/10/2023 with a complaint of acute back pain. Pain was very severe; he tried pulling a piece of concrete out of the ground, bending at the waist. He started having severe back pain. He said his symptoms initially started improving after some stretching and with bending backwards, but worsened when he tried to move some pieces of concrete again. He denied any numbness or tingling, weakness, urinary or fecal incontinence. The pain radiated down his RLE mainly. REview of systems was otherwise negative. Vitals in the ED were BP of 133/76, OK of 81, RR of 17 and he was saturating at 98% on room air. CBC and BMP had not been done. Thoracic and lumbar spine MRI showed no acute fracture or subluxation and showed minor annular bulge at L4-5 without spinal stenosis, and mild annular bulge with moderate sized central/left pareacentral disc protrusion at L5-S1 causing mild spinal stenosis. He is being admitted to be managed for intractable back pain. [facility] Home Medications NK 10/10/23 [History Last Taken Unknown] Allergy/AdvReac Type Severity Reaction Status Date / Time No Known Allergies Allergy Verified 10/10/23 15:30 Surgical History Hx of appendectomy Social History Smoking Status: Current every day smoker tobacco type: cigarettes, cigars and e-cigarettes ROS Review of Systems ROS Unobtainable: Denies due to encephalopathy Constitutional Constitutional: Reports weakness; Denies anorexia, chills, fever(s), malaise, night sweats or weight gain Eyes Eyes: Denies change in vision ENT HEENT: Denies dysphagia, headache(s), loss taste/smell, nasal congestion or sore throat Cardiovascular Cardiovascular: Denies chest pain, edema, orthopnea, palpitations, paroxysmal nocturnal dyspnea or syncope Respiratory/Chest Respiratory/Chest: Denies cough, shortness of breath at rest or shortness of breath with exertion Gastrointestinal Gastrointestinal: Denies abdominal pain, diarrhea, nausea or vomiting Genitourinary Genitourinary: Denies dysuria Musculoskeletal Musculoskeletal: Reports back pain and limited range of motion; Denies joint karyna n Neurologic Neurologic: Reports focal weakness; Denies abnormal gait, confusion, dizziness, headache(s), lack of coordination, numbness, seizures, tingling or weakness Psychiatric Psychiatric: Denies anxiety Endocrine Endocrinology: Denies change in body appearance Hematologic/Lymphatic Hematologic/Lymphatic: Denies anemia Vital Signs Vital Signs Vital Signs: 10/10/23 15:31 Temperature 97.2 F L Temperature Source Temporal Pulse Rate 72 Respiratory Rate 16 Blood Pressure 146/71 H Blood Pressure Mean 96 Pulse Ox 98 Oxygen Delivery Method Room Air Physical Exam Const alert, oriented x3 and no apparent distress General Appearance: cooperative and well developed HEENT normocephalic, head/scalp atraumatic and moist oral mucous membranes Eyes PERRL and EOMs intact bilaterally Neck no lymphadenopathy, supple and no JVD Lymph Lymphatic: no lymphadenopathy noted and no lymphedema noted Resp normal respiratory effort, normal air movement and clear to auscultation bilaterally Cardio regular rate, regular rhythm, S1 normal heart sound, S2 normal heart sound and no murmurs GI normal to inspection, nondistended, normoactive bowel sounds, soft to palpation and non-tender Extremity normal capillary refill, no clubbing, cyanosis or edema and no calf tenderness Skin General Skin Exam: no breakdown Neuro CN's II-XII intact bilaterally, no focal motor deficits and no sensory deficits noted Neuro Narrative: has paraspinal tenderness on palpation, especially on the right side. Straight leg raising test on right side is positive. Psych thought process normal and cooperative Appearance: appropriate Results Imagaing Radiology Impression Abdomen/Bladder Ultrasound 10/10/23 17:18 IMPRESSION: Normal ultrasound of the urinary bladder. Electronically Signed: Delfin Bryant MD at 19:43 EST Reading Location ID and State: [address] [place] [address] Tel , Service support , Lumbar Spine MRI 10/10/23 17:18 IMPRESSION: No evidence for acute fracture or subluxation. Minor annular bulge at L4-5 without spinal stenosis. Mild annular bulge with moderate sized central/left paracentral disc protrusion at L5-S1 creating mild spinal stenosis. Findings as above Electronically Signed: Delfin Bryant MD at 19:38 EST Reading Location ID and State: [address] [place] [address] Tel , Service support , Thoracic Spine MRI 10/10/23 17:18 IMPRESSION: Normal unenhanced MRI examination of the thoracic spine. Electronically Signed: Delfin Bryant MD at 19:30 EST Reading Location ID and State: [address] [place] [address] Tel , Service support , Assessment & Plan Assessment/Plan (1) Intractable back pain: PLAN: Plan #Intractable back pain * likely due to a pinched nerve from mild spinal stenosis * was working with heavy concrete when he tried lifting a heavy piece nad had sharp back pain, with associated numbness and tingling mainly in his RLE. * no fecal or urinary incontinence, and at time of review, had no numbness or tingling * admit to med surg * Thoracic MRI was normal; lumbar spine MRI showed No evidence for acute fracture or subluxation. Minor annular bulge at L4-5 without spinal stenosis. Mild annular bulge with moderate sized central/left paracentral disc protrusion at L5-S1 creating mild spinal stenosis. * PT/OT consult * PO tylenol, oxycodone, IV toradol and IV morphine prn for pain * fall precautions * #DVT prophylaxis: low risk, encourage ambulation. Total time spent on evaluation and management of patient, reviewing chart, discussing plan with patient and his father and significant other, discussion with nursing and ancillary staff as well as documentation: 52 mins Charges/Coding Visit Charges Inpatient E&M: 91124 Init Hosp L2
[2023-10-10] MEDS: Morphine 4 MG/ML Syringe IV (20:21)
[2023-10-10] MEDS: Ondansetron 4 MG/2 ML Vial IV (20:21)
[2023-10-10 20:25] VITALS: BP 133/76; PULSE 81; RESP 17; O2SAT 98
--- OUTSIDE RECORDS SUMMARY | 2023-10-10 21:04 | XMS RPT_ITS | CCD ---
Author Name Unknown Address [address] [place] [id number] Organization [facility] Care Team Providers Care Patient Biller Name Role Phone DAVID HAM Unavailable Unavailable REFERRED, SELF Unavailable Unavailable DAVID HAM Unavailable Unavailable DAVID HAM Unavailable Unavailable REFERRED, SELF Unavailable Unavailable DAVID HAM Unavailable Unavailable KAVON, DR SOPHIA Roth Admitting Unavaila ble KAVON, DR SOPHIA Roth Attending Unavaila ble KAVON, DR SOPHIA oRth Primary Care Unavaila ble Unavailable Primary Care Provider MATT Abernathy Referring Unavailable OLDER, SHERINE Referring Unavailable Allergies Allergy Classification Reported Allergen(s) Allergy Type Date of Onset Reaction(s) Facility (6 sources) vancomycin; Translations: [VANCOMYCIN] Drug Allergy 11-19-2013 Rash [facility] Repository Medications Current Medications Medication Drug Class(es) Dates Sig (Normalized) Sig (Original) famotidine 20 mg oral tablet (1 source) Histamine-2 Receptor Antagonist Start: 07-07-2023 End: 07-14-2023 take 1 tablet by mouth twice daily famotidine (PEPCID) 20 mg tablet Take 1 tablet by mouth two times a day for 7 days. 14 tablet 0 07/07/2023 07/14/2023 Active Completed/Discontinued Medications Medication Drug Class(es) Dates Sig (Normalized) Sig (Original) ondansetron 8 mg oral tablet (1 source) Serotonin-3 Receptor Antagonist Start: 06-23-2023 take 1 tablet by mouth every twelve hours as needed ondansetron (ZOFRAN) 8 mg tablet Take 1 tablet by mouth every 12 hours as needed for nausea/vomiting. 4 tablet 0 06/23/2023 Active Problems Active Problems Problem Classification Problem Date Documented Da te Episodic/Chronic Allergic reactions (1 source) Contact dermatitis due to plants; Translations: [Unspecified contact dermatitis due to plants, except food] 07-07-2023 Episodic Other male genital disorders (2 sources) Pain of left testicle; Translations: [Left testicular pain] Episodic Unclassified (1 source) Acute midline low back pain, unspecified whether sciatica present; Translations: [Acute midline low back pain, unspecified whether sciatica present] Onset: 02-18-2023 Past or Other Problems Problem Classification Problem Date Documented Da te Episodic/Chronic Other male genital disorders (1 source) Left testicular pain; Translations: [Pain in left testicle] Onset: 11-16-2022 Episodic Results Test Name Value Interpretation Reference Range Facil ity Vital Signs Date Time Vital Sign Value Performing Clinician Faci lity 07-07-2023 10:07-0400 Body temperature 98.01 [degF] Alva Echavarria HUC OB.DAIRY CHEMIST Work Phone: [facility] 07-07-2023 10:07-0400 Body weight 93.89 kg Alva Echavarria HUC OB.DAIRY CHEMIST Work Phone: [facility] 07-07-2023 10:07-0400 Diastolic blood pressure 70 mm[Hg] Alva Echavarria HUC OB.DAIRY CHEMIST Work Phone: [facility] 07-07-2023 10:07-0400 Heart rate 76 /min Alva Echavarria HUC OB.DAIRY CHEMIST Work Phone: [facility] 07-07-2023 10:07-0400 Respiratory rate 16 /min Alva Echavarria HUC OB.DAIRY CHEMIST Work Phone: [facility] 07-07-2023 10:07-0400 SaO2% (BldA) [Mass fraction] 97 % Alva Echavarria HUC OB.DAIRY CHEMIST Work Phone: [facility] 07-07-2023 10:07-0400 Systolic blood pressure 118 mm[Hg] Alva Echavarria HUC OB.DAIRY CHEMIST Work Phone: [facility] 11-15-2022 16:48-0500 Body temperature 98.2 [degF] Matt Ware HUC OB.DAIRY CHEMIST Work Phone: [facility] 11-15-2022 16:48-0500 Body weight 91.35 kg Matt Ware HUC OB.DAIRY CHEMIST Work Phone: [facility] 11-15-2022 16:48-0500 Diastolic blood pressure 62 mm[Hg] Matt Ware HUC OB.DAIRY CHEMIST Work Phone: [facility] 11-15-2022 16:48-0500 Heart rate 64 /min Matt Ware HUC OB.DAIRY CHEMIST Work Phone: [facility] 11-15-2022 16:48-0500 Respiratory rate 16 /min Matt Ware HUC OB.DAIRY CHEMIST Work Phone: [facility] 11-15-2022 16:48-0500 SaO2% (BldA) [Mass fraction] 98 % Matt Ware HUC OB.DAIRY CHEMIST Work Phone: [facility] 11-15-2022 16:48-0500 Systolic blood pressure 118 mm[Hg] Matt Ware HUC OB.DAIRY CHEMIST Work Phone: [facility] Encounters Encounter Date Encounter Type Care Provider Facility Start: 07-07-2023 End: 07-07-2023 [facility] Start: 07-07-2023 End: 07-07-2023 Patient encounter procedure Alva Echavarria HUC OB.DAIRY CHEMIST Work Phone: [facility] Procedures Date Procedure Procedure Detail Performing Clinician Start: 11-16-2022 Dup-scan artl christoph abdl/pel/scrot&/rpr orgn com Matt Ware HUC OB.DAIRY CHEMIST Work Phone: Start: 11-16-2022 [facility] HUC OB.DAIRY CHEMIST Work Phone: Plan of Treatment Date Care Activity Detail Author Start: 03-13-2029 Urine microalbumin profile DTaP,Tdap,Td Vaccine (7 - Td or Tdap) [facility] Start: 05-31-2023 Covid-19 Vaccine () Covid-19 Vaccine () [facility] Start: 05-31-2023 Influenza [facility] Start: 09-30-2022 DEPRESSION ASSESSMENT DEPRESSION ASSESSMENT [facility] Start: 01-10-2022 COVID-19 VACCINE (2 - Booster for Nelida series) COVID-19 VACCINE (2 - Booster for Nelida series) [facility] Start: 2020 Urine microalbumin profile [facility] Start: 2019 HEPATITIS C SCREENING HEPATITIS C SCREENING [facility] Start: 2019 HIV SCREENING HIV SCREENING [facility] Start: 2017 Meningococcal B Vaccine: Consider Based On Risk (1 of 2 - Patient Seeks Protection) Meningococcal B Vaccine: Consider Based On Risk (1 of 2 - Patient Seeks Protection) [facility] Start: 2015 PEDS TO ADULT TRANSITION ANNUAL ASSESSMENT PEDS TO ADULT TRANSITION ANNUAL ASSESSMENT [facility] Start: 2013 PEDS TO ADULT TRANSITION INITIAL DISCUSSION PEDS TO ADULT TRANSITION INITIAL DISCUSSION [facility] Start: 2012 HPV VACCINE (1 - Male 2-dose series) HPV VACCINE (1 - Male 2-dose series) [facility] Start: 2011 MENINGOCOCCAL B: Consider based on risk (1 of 2 - Risk Bexsero 2-dose series) MENINGOCOCCAL B: Consider based on risk (1 of 2 - Risk Bexsero 2-dose series) [facility] Start: 2010 HPV Vaccine (1 - Male 2-dose series) HPV Vaccine (1 - Male 2-dose series) [facility] Start: 2001 HEPATITIS B (1 of 3 - 3-dose series) HEPATITIS B (1 of 3 - 3-dose series) [facility] Start: 2001 Hepatitis B Vaccine (1 of 3 - 3-dose series) Hepatitis B Vaccine (1 of 3 - 3-dose series) [facility] End: 12-15-2023 Dup-scan artl christoph abdl/pel/scrot&/rpr orgn com US DOPPLER COMPLETE Radiology STAT Pain in left testicle 1 Occurrences starting 11/15/2022 until 12/15/2023 [facility] Work Phone: Immunizations Immunization Date Immunization Notes Care Provider Fa cility 07-20-2022 influenza virus vacc ine, unspecified formulation Alva Echavarria HUC OB.DAIRY CHEMIST Work Phone: [facility] Payers Date Payer Category Payer Unknown [place] [id number] 2023-Present [phone] [address] [place] [address] Indemnity [id number] 2022 [employer] ( and others) [id number] 2001 Unknown [id number] Private Health Insurance [id number] Unknown [id number] Unknown [id number] Social History Date Type Detail Facility Start: 11-16-2020 End: 02-17-2023 Tobacco smoking status NHIS Never smoked tobacco [facility] Start: 11-16-2020 End: 02-17-2023 Tobacco use and exposure User of smokeless tobacco [facility] Start: 11-15-2022 End: 07-07-2023 Alcohol intake Current drinker of alcohol (finding) [facility] Start: 11-16-2020 End: 02-17-2023 Tobacco Comment electronic cig [facility] Start: 2001 Sex Assigned At Not on file [facility] Start: 11-16-2020 End: 07-07-2023 History of Social function [facility] Start: 11-16-2020 End: 07-07-2023 Tobacco use panel [facility] National Score (1-10 0), lower number is lower risk Not on file [facility] Clinical Notes 11-15-2022 to 07-07-2023 Patient InstructionsAlva Echavarria APRN.CNP - 07/07/2023 10:11 AM EDTTelephone Encounter - Shanika Metz MA - 11/16/2022 6:26 PM Vernell Calix RDMS - 11/16/2022 1:45 PM EST Note Date & Type Note Facility 07-07-2023 Note HNO ID: [id number] Author: Alva Echavarria APRN.CNP Service: ? Author Type: Nurse Practitioner Type: Progress Notes Filed: 07/07/2023 10:31 AM Note Text: This note was created using [employer]. Subjective Michelle Watson is a 22 year old male. 22 year old male with no PMH presents for poison mirza Acute onset 5 days ago. 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 Endorses he felt itchy that evening. The next day he had red, raised and itchy rash to hands and upper arms. Denies URI sx. Denies fever or chills. Denies malaise or fatigue Denies new lotions, soaps or medicines. Has used Calamine daily Utilized leftover Prednisone The history is provided by the patient. No foreign languages department chair was used. Rash This is a new problem. The current episode started in the past 7 days. The problem is unchanged. Location: hands and arms. The rash is characterized by redness and itchiness. He was exposed to plant contact. Pertinent negatives include no anorexia, congestion, cough, diarrhea, eye pain, facial edema, fatigue, fever, joint pain, nail changes, rhinorrhea, shortness of breath, sore throat or vomiting. Past treatments include anti-itch cream and antihistamine. The treatment provided no relief. There is no history of allergies, asthma, eczema or varicella. No past medical history on file. No past surgical history on file. ALLERGIES Vancomycin MEDICATIONS famotidine (PEPCID) 20 mg tablet Take 1 tablet by mouth two times a day for 7 days. hydrOXYzine HCl (ATARAX) 25 mg tablet Take 1 tablet by mouth every 6 hours as needed for up to 7 days. predniSONE (DELTASONE) 10 mg tablet Take 6 tabs for 3 days, then 4 tabs for 3 days, then 2 tabs for 3 days then 1 tab for 3 days with food. ondansetron (ZOFRAN) 8 mg tablet Take 1 tablet by mouth every 12 hours as needed for nausea/vomiting. (Patient not taking: Reported on 07/07/2023) No family history on file. Social History Tobacco Use Smoking status: Never Smokeless tobacco: Current Tobacco comments: electronic cig Substance Use Topics Alcohol use: Yes Drug use: Never Review of Systems Constitutional: Negative for fatigue and fever. HENT: Negative for congestion, rhinorrhea and sore throat. Eyes: Negative for pain. Respiratory: Negative for cough and shortness of breath. Gastrointestinal: Negative for anorexia, diarrhea and vomiting. Musculoskeletal: Negative for arthralgias, back pain, gait problem and joint pain. Skin: Positive for rash. Negative for color change, nail changes and pallor. Allergic/Immunologic: Negative for environmental allergies, food allergies and immunocompromised state. Neurological: Negative for dizziness, facial asymmetry, light-headedness and headaches. Hematological: Negative for adenopathy. Does not bruise/bleed easily. Psychiatric/Behavioral: Negative for agitation and behavioral problems. Objective BP 118/70 Pulse 76 Temp 36.7 ?C (98 ?F) Resp 16 Wt 93.9 kg (207 lb) SpO2 97% Physical Exam Vitals and nursing note reviewed. Constitutional: General: He is not in acute distress. Appearance: Normal appearance. He is not ill-appearing, toxic-appearing or diaphoretic. HENT: Head: Normocephalic and atraumatic. Right Ear: External ear normal. Left Ear: External ear normal. Nose: Nose normal. No congestion or rhinorrhea. Mouth/Throat: Mouth: Mucous membranes are moist. Pharynx: Oropharynx is clear. No oropharyngeal exudate or posterior oropharyngeal erythema. Eyes: General: Right eye: No discharge. Left eye: No discharge. Extraocular Movements: Extraocular movements intact. Conjunctiva/sclera: Conjunctivae normal. Pupils: Pupils are equal, round, and reactive to light. Cardiovascular: Rate and Rhythm: Normal rate and regular rhythm. Pulses: Normal pulses. Heart sounds: Normal heart sounds. No murmur heard. No friction rub. No gallop. Pulmonary: Effort: Pulmonary effort is normal. No respiratory distress. Breath sounds: Normal breath sounds. No stridor. No wheezing, rhonchi or rales. Chest: Chest wall: No tenderness. Abdominal: General: Abdomen is flat. There is no distension. Palpations: Abdomen is soft. There is no mass. Tenderness: There is no abdominal tenderness. There is no guarding or rebound. Hernia: No hernia is present. Musculoskeletal: General: No swelling, tenderness, deformity or signs of injury. Normal range of motion. Cervical back: Normal range of motion and neck supple. No rigidity or tenderness. Right lower leg: No edema. Left lower leg: No edema. Lymphadenopathy: Cervical: No cervical adenopathy. Skin: General: Skin is warm and dry. Capillary Refill: Capillary refill takes less than 2 seconds. Coloration: Skin is not jaundiced or pale. Findings: Rash (bilateral hands with diffuse pruritic macupapular rash. No abscess. No streaking. No petechia) present. No bruising or lesion. (more content not included)... [facility] 07-07-2023 Instructions Alva Echavarria APRN.CNP - 07/07/2023 10:15 AM EDT Patient instructed to: * Use cold compresses, 20 minutes 4-6 times per day * Use [place] Solution and Aveeno products as needed. * Wash all clothes. * Return to primary care provider if no relief in 3-4 days. documented in this encounter [facility] 07-07-2023 History of Presen t illness Narrative This note was created using [employer]. Subjective Michelle Watson is a 22 year old male. 22 year old male with no PMH presents for poison mirza Acute onset 5 days ago. 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 Endorses he felt itchy that evening. The next day he had red, raised and itchy rash to hands and upper arms. Denies URI sx. Denies fever or chills. Denies malaise or fatigue Denies new lotions, soaps or medicines. Has used Calamine daily Utilized leftover Prednisone The history is provided by the patient. No foreign languages department chair was used. Rash This is a new problem. The current episode started in the past 7 days. The problem is unchanged. Location: hands and arms. The rash is characterized by redness and itchiness. He was exposed to plant contact. Pertinent negatives include no anorexia, congestion, cough, diarrhea, eye pain, facial edema, fatigue, fever, joint pain, nail changes, rhinorrhea, shortness of breath, sore throat or vomiting. Past treatments include anti-itch cream and antihistamine. The treatment provided no relief. There is no history of allergies, asthma, eczema or varicella. No past medical history on file. No past surgical history on file. ALLERGIES Vancomycin MEDICATIONS famotidine (PEPCID) 20 mg tablet Take 1 tablet by mouth two times a day for 7 days. hydrOXYzine HCl (ATARAX) 25 mg tablet Take 1 tablet by mouth every 6 hours as needed for up to 7 days. predniSONE (DELTASONE) 10 mg tablet Take 6 tabs for 3 days, then 4 tabs for 3 days, then 2 tabs for 3 days then 1 tab for 3 days with food. ondansetron (ZOFRAN) 8 mg tablet Take 1 tablet by mouth every 12 hours as needed for nausea/vomiting. (Patient not taking: Reported on 07/07/2023) No family history on file. Social History Tobacco Use Smoking status: Never Smokeless tobacco: Current Tobacco comments: electronic cig Substance Use Topics Alcohol use: Yes Drug use: Never Review of Systems Constitutional: Negative for fatigue and fever. HENT: Negative for congestion, rhinorrhea and sore throat. Eyes: Negative for pain. Respiratory: Negative for cough and shortness of breath. Gastrointestinal: Negative for anorexia, diarrhea and vomiting. Musculoskeletal: Negative for arthralgias, back pain, gait problem and joint pain. Skin: Positive for rash. Negative for color change, nail changes and pallor. Allergic/Immunologic: Negative for environmental allergies, food allergies and immunocompromised state. Neurological: Negative for dizziness, facial asymmetry, light-headedness and headaches. Hematological: Negative for adenopathy. Does not bruise/bleed easily. Psychiatric/Behavioral: Negative for agitation and behavioral problems. Objective BP 118/70 Pulse 76 Temp 36.7 C (98 F) Resp 16 Wt 93.9 kg (207 lb) SpO2 97% Physical Exam Vitals and nursing note reviewed. Constitutional: General: He is not in acute distress. Appearance: Normal appearance. He is not ill-appearing, toxic-appearing or diaphoretic. HENT: Head: Normocephalic and atraumatic. Right Ear: External ear normal. Left Ear: External ear normal. Nose: Nose normal. No congestion or rhinorrhea. Mouth/Throat: Mouth: Mucous membranes are moist. Pharynx: Oropharynx is clear. No oropharyngeal exudate or posterior oropharyngeal erythema. Eyes: General: Right eye: No discharge. Left eye: No discharge. Extraocular Movements: Extraocular movements intact. Conjunctiva/sclera: Conjunctivae normal. Pupils: Pupils are equal, round, and reactive to light. Cardiovascular: Rate and Rhythm: Normal rate and regular rhythm. Pulses: Normal pulses. Heart sounds: Normal heart sounds. No murmur heard. No friction rub. No gallop. Pulmonary: Effort: Pulmonary effort is normal. No respiratory distress. Breath sounds: Normal breath sounds. No stridor. No wheezing, rhonchi or rales. Chest: Chest wall: No tenderness. Abdominal: General: Abdomen is flat. There is no distension. Palpations: Abdomen is soft. There is no mass. Tenderness: There is no abdominal tenderness. There is no guarding or rebound. Hernia: No hernia is present. Musculoskeletal: General: No swelling, tenderness, deformity or signs of injury. Normal range of motion. Cervical back: Normal range of motion and neck supple. No rigidity or tenderness. Right lower leg: No edema. Left lower leg: No edema. Lymphadenopathy: Cervical: No cervical adenopathy. Skin: General: Skin is warm and dry. Capillary Refill: Capillary refill takes less than 2 seconds. Coloration: Skin is not jaundiced or pale. Findings: Rash (bilateral hands with diffuse pruritic macupapular rash. No abscess. No streaking. No petechia) present. No bruising or lesion. Neurological: General: No focal deficit present. Mental Status: He is alert and oriented to person, place, and time. Cranial Nerves: No cranial nerve deficit. Sensory: No sensory deficit. Motor: No weakness. Coordination: Coordination normal. Gait: Gait normal. Deep Tendon Reflexes: Reflexes normal. Psychiatric: Mood and Affect: Mood normal. Behavior: Behavior normal. Thought Content: Thought content normal. Assessment and Plan ASSESSMENT/PLAN: 1. Contact dermatitis due to plant - ICD9: 692.6, ICD10: L25.5 X 5 days No red flags - Oral Steriod tx -Prednisone taper - Anti itch therapy of Rx for Atarax recommended prn RX Pepcid - discussed skin care of rash - follow up if symptoms persist or worsen. - Discussed red flags Alva Echavarria APRN.DAIRY CHEMIST documented in this encounter [facility] 06-23-2023 Note HNO ID: [id number] Author: Orly Kearney APRN.DAIRY CHEMIST Service: ? Author Type: Nurse Practitioner Type: Progress Notes Filed: 06/23/2023 10:07 AM Note Text: Subjective The history is provided by the patient. No foreign languages department chair was used. EV Watson is a 22 year old male who presents today for CC of nause, vomiting and abdominal cramping during the night. He has not used any treatment or medications. He denies any severe abdominal pain or diarrhea. No known exposure to covid or flu BP 122/62 Pulse (!) 56 Temp 36.2 ?C (97.1 ?F) Resp 18 Wt 96 kg (211 lb 9.6 oz) SpO2 99% Social History Tobacco Use Smoking status: Never Smokeless tobacco: Current Tobacco comments: electronic cig Substance Use Topics Alcohol use: Yes Drug use: Never No past medical history on file. I have confirmed and edited as necessary, the [facility] Review of Systems Constitutional: Negative for chills and fever. Gastrointestinal: Positive for abdominal pain, nausea and vomiting. Negative for diarrhea. Genitourinary: Negative for dysuria, flank pain, frequency, hematuria and urgency. Objective Physical Exam Vitals and nursing note reviewed. Cardiovascular: Rate and Rhythm: Normal rate and regular rhythm. Heart sounds: Normal heart sounds. Pulmonary: Effort: Pulmonary effort is normal. Breath sounds: Normal breath sounds. Abdominal: General: Abdomen is flat. Bowel sounds are increased. Palpations: Abdomen is soft. Tenderness: There is generalized abdominal tenderness (mild). There is no right CVA tenderness, left CVA tenderness or guarding. Negative signs include Delgado's sign and McBurney's sign. Skin: General: Skin is warm and dry. Neurological: Mental Status: He is alert and oriented to person, place, and time. Psychiatric: Mood and Affect: Affect normal. ASSESSMENT/PLAN: 1. Nausea and vomiting, unspecified vomiting type - ICD9: 787.01, ICD10: R11.2 Appears to be viral Zofran as needed for vomiting Diet Red flags given Diagnosis and treatment plan were discussed and questions were answered to the patient's satisfaction. Pt acknowledged understanding of concepts and follow up plan. Specific signs and symptoms that would indicate the need for higher level of care were discussed in detail warranting prompt ER evaluation. Orly Kearney APRN.DAIRY CHEMIST [facility] 02-18-2023 Note HNO ID: [id number] Author: RT Ted(R) Service: Nuclear Medicine Author Type: Technologist Type: Progress Notes Filed: 02/18/2023 3:23 PM Note Text: Radiology Service Progress Note PATIENT NAME: Michelle Watson DATE OF SERVICE: February 18, 2023 TIME: 3:15 PM PATIENT IDENTITY VERIFICATION COMPLETED USING TWO (2) IDENTIFIERS: Name and Date of confirmed by patient verbally. FALL SCREENING: Has the patient had 2 falls in the last year or 1 fall with injury or currently using an Ambulatory Assistive Device (Walker, Cane, Wheelchair, Crutches, etc.)? No PATIENT GENDER DATA: Male PATIENT RELEVANT IMPLANT DATA REVIEWED: Not Applicable RADIOLOGY DEPARTMENT: General X-ray: Exam(s) Completed: Spine X-Ray(s): Lumbar AP / LAT / L5-S1 PERIPHERAL IV DATA: Not applicable SIGNED BY: RT Ted(R) February 18, 2023 3:15 PM [facility] 02-17-2023 Note HNO ID: [id number] Author: Sherine Guzman APRN.DAIRY CHEMIST Service: ? Author Type: Nurse Practitioner Type: Progress Notes Filed: 02/17/2023 3:51 PM Note Text: CC: Patient presents with: Low Back Pain: Radiating to bilateral hips and legs x this AM HPI Michelle Watson is a 22 year old male who presents with low back pain that started this morning. Located across low back with radiation to bilateral hips. Described as burning and rated 8 out of 10 Cause: The back pain is not related to a known injury. Pain is aggravated by bending, stooping, lifting and long standing Pain is alleviated by rest Reports numbness/tingling in low back and hips Denies: weakness, morning stiffness, leg pain, leg weakness, loss of bowel or bladder control, foot drop, gait disturbance, saddle anesthesia and urinary retention Treatments tried: nothing Past medical history is significant for: no back problems REVIEW OF SYSTEMS General: fever, chills, sweats GI: Negative for abdominal discomfort, nausea, vomiting, constipation : Negative for dysuria, frequency, decreased stream, hematuria, and hesitancy Skin: Negative for lesions, rash, and itching Musculoskeletal: negative for joint pain, redness, swelling No past medical history on file. No past surgical history on file. ALLERGIES Vancomycin MEDICATIONS No prescriptions on file. No family history on file. Social History Tobacco Use Smoking status: Never Smokeless tobacco: Current Tobacco comments: electronic cig Substance Use Topics Alcohol use: Yes Drug use: Never PHYSICAL EXAM BP 100/68 Pulse 86 Temp 36.3 ?C (97.3 ?F) Resp 18 Wt 93.6 kg (206 lb 6.4 oz) SpO2 98% General Appearance: well appearing, in no acute distress, alert Skin: No rashes or lesions Back: Normal to inspection. Mild tenderness with palpation of lumbar spine and with palpation of paraspinal muscles. ROM: Full but painful. Reflexes:2+ and symmetric. Muscle strength: 5/5 bilaterally. SLR: Supine - Right Negative, Left Negative. ASSESSMENT/PLAN: 1. Acute midline low back pain, unspecified whether sciatica present - ICD9: 724.2, ICD10: M54.50 No alarm symptoms or exam findings. - XR LUMBAR GENERAL 3V AP/LAT/L5-S1 tomorrow, imaging not available today - start prednisone burst with taper - discussed non-medication measures - follow-up with PCP in 1 week if no improvement or sooner if worsening - given [facility] patient education handout on above Prescription instructions reviewed with patient as applicable. Potential red flag symptoms discussed with the patient. Reviewed appropriate action plan to take if red flag symptoms occur. Patient agreeable to treatment plan. Sherine Guzman APRN.[facility] 11-16-2022 Miscellaneous Notes Patient notified of results, verbalized understanding of instructions given. Shanika Metz MA ----- Message from Adal Dhillon MD sent at 11/16/2022 5:29 PM EST ----- Ultrasound showed enlarged veins in the scrotum as expected. Follow up with urology if symptoms persist. documented in this encounter [facility] 11-16-2022 Note HNO ID: [id number] Author: Vernell Enriquez RDMS Service: ? Author Type: [employer] Supervisor Type: Progress Notes Filed: 11/16/2022 2:27 PM Note Text: Radiology Service Progress Note PATIENT NAME: Michelle Watson DATE OF SERVICE: November 16, 2022 TIME: 2:27 PM PATIENT IDENTITY VERIFICATION COMPLETED USING TWO (2) IDENTIFIERS: Name and Date of confirmed by patient verbally. FALL SCREENING: Has the patient had 2 falls in the last year or 1 fall with injury or currently using an Ambulatory Assistive Device (Walker, Cane, Wheelchair, Crutches, etc.)? No PATIENT GENDER DATA: Male PATIENT RELEVANT IMPLANT DATA REVIEWED: Not Applicable RADIOLOGY DEPARTMENT: Ultrasound PERIPHERAL IV DATA: Not applicable SIGNED BY: Vernell Enriquez RDMS November 16, 2022 2:27 PM [facility] 11-16-2022 History of Presen t illness Narrative Radiology Service Progress Note PATIENT NAME: Michelle Watson DATE OF SERVICE: November 16, 2022 TIME: 2:27 PM PATIENT IDENTITY VERIFICATION COMPLETED USING TWO (2) IDENTIFIERS: Name and Date of confirmed by patient verbally. FALL SCREENING: Has the patient had 2 falls in the last year or 1 fall with injury or currently using an Ambulatory Assistive Device (Walker, Cane, Wheelchair, Crutches, etc.)? No PATIENT GENDER DATA: Male PATIENT RELEVANT IMPLANT DATA REVIEWED: Not Applicable RADIOLOGY DEPARTMENT: Ultrasound PERIPHERAL IV DATA: Not applicable SIGNED BY: Vernell Enriquez RDMS November 16, 2022 2:27 PM documented in this encounter [facility] 11-15-2022 Note HNO ID: [id number] Author: Matt Ware APRN.[facility]I Service: ? Author Type: Nurse Practitioner Type: Progress Notes Filed: 11/15/2022 6:46 PM Note Text: Subjective HPI Nontoxic-appearing male presents urgent care chief complaint left testicle pain. Duration of symptoms about a day and a half. Associated symptoms slight pain. Describes pain as aching. Relieved by sitting. Patient states noticed the lump yesterday morning. Presents today for evaluation. History of similar signs and symptoms in the past. Was seen 2019 with similar diagnosis. Has not use any OTC medications. Denies any testicular trauma. No scrotal pain. No rashes. No penile drainage or dysuria. Denies any fever nausea vomiting or abdominal pain. Past medical history prescription medication use allergies reviewed. BP 118/62 Pulse 64 Temp 36.8 ?C (98.2 ?F) (Tympanic) Resp 16 Wt 91.4 kg (201 lb 6.4 oz) SpO2 98% .Patient presents with: Mass: Pt reported (LT) testicle pain, lump x1 day. History reviewed. No pertinent past medical history. History reviewed. No pertinent surgical history. ALLERGIES Vancomycin MEDICATIONS No prescriptions on file. History reviewed. No pertinent family history. Social History Tobacco Use Smoking status: Never Smokeless tobacco: Current Tobacco comments: electronic cig Substance Use Topics Alcohol use: Yes Drug use: Never Review of Systems Constitutional: Negative for chills, fever and malaise/fatigue. HENT: Negative for congestion, ear discharge, ear pain, sinus pain and sore throat. Eyes: Negative for blurred vision, pain, discharge and redness. Respiratory: Negative for cough, hemoptysis, sputum production, shortness of breath, wheezing and stridor. Cardiovascular: Negative for chest pain. Gastrointestinal: Negative for abdominal pain, diarrhea, nausea and vomiting. Genitourinary: Negative. Musculoskeletal: Negative for myalgias. Skin: Negative for itching and rash. Neurological: Negative for dizziness and headaches. Objective Physical Exam Constitutional: General: He is not in acute distress. Appearance: He is not diaphoretic. HENT: Head: Normocephalic. Eyes: Conjunctiva/sclera: Conjunctivae normal. Pupils: Pupils are equal, round, and reactive to light. Cardiovascular: Rate and Rhythm: Normal rate and regular rhythm. Heart sounds: Normal heart sounds. Pulmonary: Effort: Pulmonary effort is normal. No tachypnea, accessory muscle usage or respiratory distress. Breath sounds: Normal breath sounds. No stridor. No wheezing, rhonchi or rales. Abdominal: General: There is no distension. Palpations: Abdomen is soft. Tenderness: There is no abdominal tenderness. There is no guarding or rebound. Genitourinary: Penis: Normal and circumcised. Testes: Right: Tenderness or swelling not present. Left: Varicocele present. Tenderness or swelling not present. Epididymis: Left: No tenderness. Comments: No high riding testicle. Musculoskeletal: Cervical back: Normal range of motion and neck supple. No rigidity or tenderness. Lymphadenopathy: Cervical: No cervical adenopathy. Lower Body: No left inguinal adenopathy. Skin: General: Skin is warm and dry. Neurological: Mental Status: He is alert and oriented to person, place, and time. ASSESSMENT/PLAN: 1. Pain in left testicle - ICD9: 608.9, ICD10: N50.812 - US SCROTUM AND CONTENTS - US SCROTUM AND CONTENTS - US DOPPLER COMPLETE - CONSULT TO UROLOGY Suspicious of varicocele. Low suspicion for torsion or epididymitis. Patient will return tomorrow for ultrasound. Treat accordingly to ultrasound findings. Follow-up with urology if symptoms not improving. Red flag symptoms discussed. Patient was not 100% sure what diagnosis he had in 2019. If patient did have testicular torsion [facility] to rule out torsion due to previous history. Follow-up with PCP as needed. Red flags prompt relation discussed. Patient verbalized understand agrees with plan of care Matt Ware APRN.[facility] 11-15-2022 History of Presen t illness Narrative Subjective HPI Nontoxic-appearing male presents urgent care chief complaint left testicle pain. Duration of symptoms about a day and a half. Associated symptoms slight pain. Describes pain as aching. Relieved by sitting. Patient states noticed the lump yesterday morning. Presents today for evaluation. History of similar signs and symptoms in the past. Was seen 2019 with similar diagnosis. Has not use any OTC medications. Denies any testicular trauma. No scrotal pain. No rashes. No penile drainage or dysuria. Denies any fever nausea vomiting or abdominal pain. Past medical history prescription medication use allergies reviewed. BP 118/62 Pulse 64 Temp 36.8 C (98.2 F) (Tympanic) Resp 16 Wt 91.4 kg (201 lb 6.4 oz) SpO2 98% .Patient presents with: Mass: Pt reported (LT) testicle pain, lump x1 day. History reviewed. No pertinent past medical history. History reviewed. No pertinent surgical history. ALLERGIES Vancomycin MEDICATIONS No prescriptions on file. History reviewed. No pertinent family history. Social History Tobacco Use Smoking status: Never Smokeless tobacco: Current Tobacco comments: electronic cig Substance Use Topics Alcohol use: Yes Drug use: Never Review of Systems Constitutional: Negative for chills, fever and malaise/fatigue. HENT: Negative for congestion, ear discharge, ear pain, sinus pain and sore throat. Eyes: Negative for blurred vision, pain, discharge and redness. Respiratory: Negative for cough, hemoptysis, sputum production, shortness of breath, wheezing and stridor. Cardiovascular: Negative for chest pain. Gastrointestinal: Negative for abdominal pain, diarrhea, nausea and vomiting. Genitourinary: Negative. Musculoskeletal: Negative for myalgias. Skin: Negative for itching and rash. Neurological: Negative for dizziness and headaches. Objective Physical Exam Constitutional: General: He is not in acute distress. Appearance: He is not diaphoretic. HENT: Head: Normocephalic. Eyes: Conjunctiva/sclera: Conjunctivae normal. Pupils: Pupils are equal, round, and reactive to light. Cardiovascular: Rate and Rhythm: Normal rate and regular rhythm. Heart sounds: Normal heart sounds. Pulmonary: Effort: Pulmonary effort is normal. No tachypnea, accessory muscle usage or respiratory distress. Breath sounds: Normal breath sounds. No stridor. No wheezing, rhonchi or rales. Abdominal: General: There is no distension. Palpations: Abdomen is soft. Tenderness: There is no abdominal tenderness. There is no guarding or rebound. Genitourinary: Penis: Normal and circumcised. Testes: Right: Tenderness or swelling not present. Left: Varicocele present. Tenderness or swelling not present. Epididymis: Left: No tenderness. Comments: No high riding testicle. Musculoskeletal: Cervical back: Normal range of motion and neck supple. No rigidity or tenderness. Lymphadenopathy: Cervical: No cervical adenopathy. Lower Body: No left inguinal adenopathy. Skin: General: Skin is warm and dry. Neurological: Mental Status: He is alert and oriented to person, place, and time. ASSESSMENT/PLAN: 1. Pain in left testicle - ICD9: 608.9, ICD10: N50.812 - US SCROTUM AND CONTENTS - US SCROTUM AND CONTENTS - US DOPPLER COMPLETE - CONSULT TO UROLOGY Suspicious of varicocele. Low suspicion for torsion or epididymitis. Patient will return tomorrow for ultrasound. Treat accordingly to ultrasound findings. Follow-up with urology if symptoms not improving. Red flag symptoms discussed. Patient was not 100% sure what diagnosis he had in 2019. If patient did have testicular torsion he will be seen in ER [facility] for repeat ultrasound to rule out torsion due to previous history. Follow-up with PCP as needed. Red flags prompt relation discussed. Patient verbalized understand agrees with plan of care Matt Ware APRN.[employer]MI[employer] documented in this encounter [facility] Diagnosis Contact dermatitis due to plant- Primary Contact dermatitis and other eczema due to plants (except food) [facility] Diagnosis Pain in left testicle Unspecified disorder of male genital organs [facility])* Diagnostic Procedure Only (Urgent) - Closed Specialty Diagnoses / Procedures Referred By Contac t Referred To Contact US IMAGING Diagnoses Pain in left testicle Procedures US DOPPLER COMPLETE DUP-SCAN ARTL CHRISTOPH ABDL/PEL/SCROT&/RPR ORGN COM Matt Ware APRN.[employer]IR[employer] CHEMIST [address] [place] [address] [place] [address] Referral ID Status Reason Start Date Expiration Date V isits Requested Visits Authorized [id number] Closed Auto-Generate d Referral 11/15/2022 12/15/2023 1 1 * Diagnostic Procedure Only (Urgent) - Closed Specialty Diagnoses / Procedures Referred By Contac t Referred To Contact US IMAGING Diagnoses Pain in left testicle Procedures US SCROTUM AND CONTENTS US SCROTUM & CONTENTS Matt Ware APRN.DAIR[employer] CHEMIST [address] [place] [address] [place] [id number] Referral ID Status Reason Start Date Expiration Date V isits Requested Visits Authorized [id number] Closed Auto-Generate d Referral 11/15/2022 12/15/2023 1 1 [facility] Summary Purpose Family History No Family History Records FoundNo Family History Records FoundNo Family History Records Found Advance Directives No Advanced Directives Records FoundNo Advanced Directives Records FoundNo Advanced Directives Records Found Reason for Referral Specialty Diagnoses / Procedures Referred By Contac t Referred To Contact Urology Diagnoses Pain in left testicle Procedures CONSULT TO UROLOGY OFFICE/OUTPATIENT [facility] HIGH MDM 60-74 MINUTES Matt Ware APRN.DAIRY CHEMIST [address] [place] [address] Referral ID Status Reason Start Date Expiration Date Visits Requested Visits Authorized [id number] Pending Review PCP Requested Referral 11/15/2022 11/15/2023 1 1 Specialty Diagnoses / Procedures Referred By Bernice t Referred To Contact US IMAGING Diagnoses Pain in left testicle Procedures US DOPPLER COMPLETE DUP-SCAN ARTL CHRISTOPH ABDL/PEL/SCROT&/RPR ORGN [facility] Matt Ware APRN.DAIRY CHEMIST [address] [place] [address] [facility] Referral ID Status Reason Start Date Expiration Date Visits Requested Visits Authorized [id number] Pending Review Auto-Generat ed Referral 11/15/2022 12/15/2023 1 1 Specialty Diagnoses / Procedures Referred By Bernice t Referred To Contact US IMAGING Diagnoses Pain in left testicle Procedures US SCROTUM AND CONTENTS US SCROTUM & CONTENTS Matt Ware APRN.DAIRY CHEMIST [address] [place] [address] [facility] Referral ID Status Reason Start Date Expiration Date Visits Requested Visits Authorized [id number] Authorized Auto-Generat ed Referral 11/15/2022 12/15/2023 1 1 Additional Source Comments (unrecognized sect ion and content) No Status Records FoundNo Status Records FoundNo Status Records Found INFORMATION SOURCE (unrecogn ized section and content) DATE CREATED AUTHOR AUTHOR'S ORGANIZ ATION 06/06/2022 [facility] DATE CREATED AUTHOR AUTHOR'S ORGANIZ ATION 07/09/2023 [facility] Source Comments (unrecognize d section and content) In the event this informatio n is protected by the Federal Confidentiality of Alcohol and Drug Abuse Patient Records regulations: The Federal rules restrict any use of the information to criminally investigate or prosecute any alcohol or drug abuse patient.[facility] the event this information is protected by the Federal Confidentiality of Alcohol and Drug Abuse Patient Records regulations: The Federal rules restrict any use of the information to criminally investigate or prosecute any alcohol or drug abuse patient.[facility] the event this information is protected by the Federal Confidentiality of Alcohol and Drug Abuse Patient Records regulations: The Federal rules restrict any use of the information to criminally investigate or prosecute any alcohol or drug abuse patient.[facility] the event this information is protected by the Federal Confidentiality of Alcohol and Drug Abuse Patient Records regulations: The Federal rules restrict any use of the information to criminally investigate or prosecute any alcohol or drug abuse patient.[facility] Reason for Visit (unrecogniz ed section and content) Reason Comments Results Reason Comments Rash itching x 5 days Reason Comments Radiology US Specialty Diagnoses / Procedures Referred By Bernice t Referred To Contact US IMAGING Diagnoses Pain in left testicle Procedures US SCROTUM AND CONTENTS US SCROTUM & CONTENTS Matt Ware, [place].DAIRY CHEMIST [address] [place] [address] [place] [address] Referral ID Status Reason Start Date Expiration Date V isits Requested Visits Authorized [id number] Closed Auto-Generate d Referral 11/15/2022 12/15/2023 1 1 FOR RECORDS PERTAINING TO PATIENTS WHO ARE [...] BE BASED ON THE PRIMARY CLINICAL RECORDS. [employer] provides no warranty or guarantee of the accuracy or completeness of information in this document.
[2023-10-10 21:21] LABS: Absolute Lymphocyte Count 0.69 X10^3/uL (0.83-4.51); Absolute Neutrophil Count 6.4 X10^3/uL (2.0-7.7); Basophil# 0.04 X10^3/uL; Basophil% 0.5 % (0-1); Eosinophil# 0.12 X10^3/uL; Eosinophils% 1.6 % (0-5); Hematocrit 43.1 % (40-54); Hemoglobin 14.5 g/dL (13.0-16.5); Lymphocyte # 0.69 X10^3/ul (0.83-4.51); Lymphocyte % 9.4 % (19-41); Mean Corp Hgb Conc 33.6 g/dL (32-36); Mean Corpuscular Hgb 29.1 pg (27.0-32.0); Mean Corpuscular Volume 86.4 fL (80-94); Monocyte# 0.14 X10^3/uL; Monocyte% 1.9 % (0-10); NRBC Flagged by Analyzer 0 % (0-5); Neutrophil # 6.35 X10^3/uL (2.7-7.7); Neutrophil % 86.2 % (47-70); Platelet Count 244 K/mm3 (150-450); RBC Distribution Width CV 13.2 % (11.6-14.6); RBC Distribution Width SD 41.4 fl (35.1-43.9); Red Blood Count 4.99 M/mm3 (4.6-6.2); White Blood Count 7.4 K/mm3 (4.4-11.0)
[2023-10-10 21:23] VITALS: BP 127/69; PULSE 54; RESP 16; TEMP 36.8; O2SAT 100
[2023-10-10 21:25] LABS: Anion Gap 8 (5-15); BUN 13 mg/dL (7-18); BUN/Creat Ratio 12.4 RATIO (10-20); Calcium,Total 9.2 mg/dL (8.5-10.1); Chloride 110 mmol/L (98-107); Creatinine, Serum 1.05 mg/dL (0.70-1.30); EST Glomerular Filtration Rate 94 mL/min (>60); Est Glom Filt Rate - Afr Amer 114 mL/min (>60); Glucose 91 mg/dL (74-106); Potassium 3.9 mmol/L (3.5-5.1); Sodium Level 141 mmol/L (136-145)
[2023-10-10 21:28] VITALS: BMI 21.9
[2023-10-10] MEDS: Acetaminophen 325 MG Tablet 650 MG PO (22:33)
[2023-10-10] MEDS: 0.9% Saline Lock 10 ML Syringe IV (22:33)
[2023-10-10 23:54] VITALS: BP 126/71; PULSE 53; RESP 16; TEMP 36.5; O2SAT 97
[2023-10-10] MEDS: Ketorolac 30 MG/ML Syringe IV (23:57)
[2023-10-10] MEDS: tiZANidine HCl 2 MG Tablet 4 MG PO (23:58)
[2023-10-11 06:55] VITALS: BP 130/86; PULSE 50; RESP 16; TEMP 36.5; O2SAT 100
[2023-10-11] MEDS: Acetaminophen 325 MG Tablet 650 MG PO ×3 (07:04→20:45)
[2023-10-11] MEDS: Ketorolac 30 MG/ML Syringe IV ×2 (07:04→20:26)
[2023-10-11] MEDS: 0.9% Saline Lock 10 ML Syringe IV ×2 (07:06→20:29)
--- NOTE | 2023-10-11 07:47 | PCM.PN.HOSP ---
Reason for Visit Reason for Visit: Diagnoses Dorsalgia, unspecified (10/10/23) Objective Data Objective Data Vital Signs: Vital Signs Temp Pulse Resp BP Pulse Ox O2 Del Method 97.7 F L 50 L 16 130/86 H 100 Room Air 10/11/23 06:55 10/11/23 06:55 10/11/23 06:55 10/11/23 06:55 10/11/23 06:55 10/11/23 06:55 Oxygen Delivery Method Room Air Weight: 194 lb 14.218 oz Body Mass Index (BMI) 21.9 Intake & Output: Intake and Output for Last 24 Hours 10/09/23 10/10/23 10/11/23 23:59 23:59 23:59 Intake Total 400 / 400 Balance 400 / 400 Lab / Micro Data 10/10/23 20:55 10/10/23 20:55 Labs: Laboratory Results - last 24 hr 10/10/23 20:55: WBC 7.4, RBC 4.99, Hgb 14.5, Hct 43.1, MCV 86.4, MCH 29.1, MCHC 33.6, RDW Std Deviation 41.4, RDW Coeff of Sherley 13.2, Plt Count 244, MPV 10.0, Immature Gran % (Auto) 0.400, Neut % (Auto) 86.2 H, Lymph % (Auto) 9.4 L, [place] % (Auto) 1.9, Eos % (Auto) 1.6, Baso % (Auto) 0.5, Absolute Neuts (auto) 6.4, Absolute Lymphs (auto) 0.69 L, Nucleated RBC % 0, Sodium 141, Potassium 3.9, Chloride 110 H, Carbon Dioxide 23.0, Anion Gap 8, BUN 13, Creatinine 1.05, Est GFR (MDRD) Af Amer 114, Est GFR (MDRD) Non-Af 94, BUN/Creatinine Ratio 12.4, Glucose 91, Calcium 9.2 Radiography Diagnostic Testing: Radiology Impression Abdomen/Bladder Ultrasound 10/10/23 17:18 IMPRESSION: Normal ultrasound of the urinary bladder. Electronically Signed: Delfin Bryant MD at 19:43 EST , Lumbar Spine MRI 10/10/23 17:18 IMPRESSION: No evidence for acute fracture or subluxation. Minor annular bulge at L4-5 without spinal stenosis. Mild annular bulge with moderate sized central/left paracentral disc protrusion at L5-S1 creating mild spinal stenosis. Findings as above Electronically Signed: Delfin Bryant MD at 19:38 EST , Thoracic Spine MRI 10/10/23 17:18 IMPRESSION: Normal unenhanced MRI examination of the thoracic spine. Electronically Signed: Delfin Bryant MD at 19:30 EST , Physical Exam Narrative Seen and examined. Patient complains of severe lower back pain after he tried to move/lift heavy concrete load. Patient works in [employer]. Physical exam General: Alert, Oriented x3, Cooperative. Normal BMI HEENT: Atraumatic, PERRLA, EOMI, Normocephalic Oral: No Gingival or Mucosal Lesions/ Ulcerations Neck: Supple, No JVD, Negative Carotid Bruits Lungs: Air entry equal in bilateral lung bases. No crepitation/rhonchi Cardiovascular: Regular rate, Regular Rhythm, Normal S1, Normal S2, No murmurs Abdomen: Bowel Sounds Present, Soft, Non Tender, Non-Distended : No renal angle tenderness. No suprapubic tenderness. Extremities: No edema, Capillary Refill Less than 3 Seconds Skin: No rashes, No breakdown Musculoskeletal: No Tenderness to Palpation of Joints or Extremities. Muscle strength 4/5 at knees and hip joints, more weaker on the right knee and hip joints. Spine: Tenderness present over L5-S1, L4 S1. Ipsilateral SLR and crossed SLR positive for severe back pain but no reproducible sciatica pain Neurological: Cranial nerves II-XII grossly intact, DTR 2+/4. No acute focal neurological deficit. Psych/Mental Status: Normal Affect, Appropriate. Assessment & Plan Assessment/Plan (1) Intractable back pain: PLAN: Plan 23-year-old gentleman was admitted with acute back pain very severe in nature after he pulled a piece of concrete out of the wound bending at the waist. Denies numbness tingling weakness urinary or fecal incontinence. Pain is restricted to the lower lumbar spine without radiation. During admission patient had back pain with associated numbness and tingling in right lower extremity. #Intractable back pain due to L5-S1 disc protrusion with mild spinal stenosis: Patient admitted on [facility] floor. Most likely due to mild spinal stenosis and pinched nerve. MRI reviewed and shows no evidence of acute fracture or subluxation but mild annular bulge with moderate side paracentral disc protrusion at L5-S1 creating mild spinal stenosis. Patient was evaluated by orthopedic surgeon Dr. Miles. He recommended pain control and mobilization but this did not work therefore pain management Dr. Carranza consulted for epidural pain injection. Continue PT and OT. Patient also has weakness of both lower legs, right more than left. No urinary continence or fecal incontinence. Thoracic MRI normal. On pain control with Tylenol and oxycodone. #DVT prophylaxis: low risk, encourage ambulation. MRI lumbar spine No evidence for acute fracture or subluxation. Minor annular bulge at L4-5 without spinal stenosis. Mild annular bulge with moderate sized central/left paracentral disc protrusion at L5-S1 creating mild spinal stenosis. Findings as above Charges/Coding Visit Charges Inpatient E&M: 68128 Subs Hosp L2
--- NOTE | 2023-10-11 08:08 | CON.PCM.OR_ITS ---
HPI Consult Data Date of Consult: 10/11/23 HPI Narrative Reason for Consultation: Acute back pain HPI Narrative: the patient is a 23-year-old male with complaints of acute severe back pain since yesterday. He is accompanied by his partner who contributed to the medical history. He states that he was lifting a piece of concrete when he t wisted and felt a pop in his back. He had sudden onset of severe pain in the lower back which was affecting ambulation. He subsequently presented to the ER at [facility] where he was seen and evaluated. Image studies were performed showing a lumbar disc herniation and he was subsequently admitted. Orthospine has been consulted for further evaluation and management. At this time he is lying in bed resting comfortably. His pain is minimal. However with movement he describes pain in the lumbosacral region which radiates across the posterior beltline and is worse on the right. He also describes pain radiating to the right gluteal region and right groin. He denies any other acute numbness tingl ing weakness or changes in bowel or bladder function. He denies any history of back surgeries or back injections. [facility] Medical History Seizures Vapes non-nicotine containing substance Home Medications NK 10/10/23 [History Last Taken Unknown] Allergy/AdvReac Type Severity Reaction Status Date / Time No Known Allergies Allergy Verified 10/10/23 15:30 Surgical History Hx of appendectomy Social History Smoking Status: Current every day smoker tobacco type: cigarettes, cigars and e-cigarettes Vital Signs Vital Signs Vital Signs: 10/10/23 15:31 10/10/23 20:25 10/10/23 21:23 Temperature 97.2 F L 98.3 F Temperature Source Temporal Oral Pulse Rate 72 81 54 L Respiratory Rate 16 17 16 Respiratory Effort Respiratory Depth Respiratory Pattern Blood Pressure 146/71 H 133/76 H 127/69 H Blood Pressure Mean 96 95 88 Blood Pressure Source Monitor Blood Pressure Position Semi-Fowlers Blood Pressure Location Right Arm Pulse Ox 98 98 100 Oxygen Delivery Method Room Air Room Air 10/10/23 21:22 10/10/23 23:54 10/11/23 06:55 Temperature 97.7 F L 97.7 F L Temperature Source Oral Oral Pulse Rate 53 L 50 L Respiratory Rate 16 16 Respiratory Effort Normal Non-Labored Respiratory Depth Normal Respiratory Pattern Normal Blood Pressure 126/71 H 130/86 H Blood Pressure Mean 89 100 Blood Pressure Source Monitor Monitor Blood Pressure Position Semi-Fowlers Semi-Fowlers Blood Pressure Location Right Arm Right Arm Pulse Ox 97 100 Oxygen Delivery Method Room Air Room Air Room Air Weight Weight: 194 lb 14.218 oz Body Mass Index (BMI) 21.9 Physical Exam Const alert, oriented x3 and no apparent distress General Appearance: cooperative, comfortable and well kempt Neck full ROM General: normal visual inspection Resp normal respiratory effort and normal air movement Effort and Inspection: able to speak in complete sentences Cardio regular rate and peripheral pulses 2+ throughout GI soft to palpation, non-tender and non-distended Back/Spine Back/Spine Narrative: Mild tenderness posteriorly about the bilateral paraspinal region at L4, L5, S1. Pain in this area with movement Cervical Spine: cervical ROM normal Thoracic Spine / Upper Back: normal to inspection Extremity normal to inspection, full ROM, normal capillary refill, no clubbing, cyanosis or edema and no calf tenderness Extremity Narrative: Positive straight leg raise on the right elicits pain in the lower back Skin no rashes or lesions noted General Skin Exam: no breakdown Neuro oriented x3, CN's II-XII intact bilaterally, moves all extremities, no focal motor deficits, no sensory deficits noted and deep tendon reflexes 2+ bilaterally Motor Exam: strength 5/5 throughout and muscle tone normal throughout Lab / Micro Data 10/10/23 20:55 10/10/23 20:55 Labs: Laboratory Results - last 24 hr 10/10/23 20:55: WBC 7.4, RBC 4.99, Hgb 14.5, Hct 43.1, MCV 86.4, MCH 29.1, MCHC 33.6, RDW Std Deviation 41.4, RDW Coeff of Sherley 13.2, Plt Count 244, MPV 10.0, Immature Gran % (Auto) 0.400, Neut % (Auto) 86.2 H, Lymph % (Auto) 9.4 L, [place] % (Auto) 1.9, Eos % (Auto) 1.6, Baso % (Auto) 0.5, Absolute Neuts (auto) 6.4, Absolute Lymphs (auto) 0.69 L, Nucleated RBC % 0, Sodium 141, Potassium 3.9, Chloride 110 H, Carbon Dioxide 23.0, Anion Gap 8, BUN 13, Creatinine 1.05, Est GFR (MDRD) Af Amer 114, Est GFR (MDRD) Non-Af 94, BUN/Creatinine Ratio 12.4, Glucose 91, Calcium 9.2 Imagaing Radiology Impression Abdomen/Bladder Ultrasound 10/10/23 17:18 IMPRESSION: Normal ultrasound of the urinary bladder. Electronically Signed: Delfin Bryant MD at 19:43 EST , Lumbar Spine MRI 10/10/23 17:18 IMPRESSION: No evidence for acute fracture or subluxation. Minor annular bulge at L4-5 without spinal stenosis. Mild annular bulge with moderate sized central/left paracentral disc protrusion at L5-S1 creating mild spinal stenosis. Findings as above Electronically Signed: Delfin Bryant MD at 19:38 EST , Thoracic Spine MRI 10/10/23 17:18 IMPRESSION: Normal unenhanced MRI examination of the thoracic spine. Electronically Signed: Delfin Bryant MD at 19:30 EST , Assessment & Plan Assessment/Plan (1) Lumbar disc herniation: PLAN: I had a lengthy discussion with the patient. I reviewed his imaging with him. Lumbar MRI dated 10/10/2023 shows central/left paracentral disc herniation at L5-S1 which I feel is contributing to his complaints. Neurologically stable at this time. At this time I recommend pain control and mobilization as tolerated. Consider consultation to pain management for possible epidural steroid injection. Once the patient is able to be discharged home, follow-up with me in clinic for further evaluation and management. The patient understands and agrees with the treatment plan.
[2023-10-11 08:50] VITALS: BP 129/69; PULSE 52; RESP 16; TEMP 36.8; O2SAT 98
[2023-10-11 14:16] VITALS: BP 110/44; PULSE 65; RESP 16; TEMP 37.1; O2SAT 97
[2023-10-11] MEDS: oxyCODONE 5 MG Tablet PO ×3 (14:23→23:35)
[2023-10-11] MEDS: Morphine 2 MG/ML Syringe IV (16:37)
--- NOTE | 2023-10-11 16:58 | CASEMGMT ---
Social Work Pt states he has a HCPOA naming his father Flavio and is unable to bring documents in at this time. MARLY Romano
--- NOTE | 2023-10-11 17:05 | CASEMGMT ---
YAN VALLEJO Assessment: Face to Face with pt for initial transition planning/care coordination assessment. YAN VALLEJO introduced self and role at [facility], pt voices understanding and consents to assessment. Pt is A&O x4 and answers all questions appropriately at this time. Pt sitting up in bed in no distress with girlfriend and friend at bedside. Care providers, pharmacy, and demographics verified/updated. Admitting Dx: intractable back pain PCP:Pt denies and denies need for local healthcare provider directory. Pt states he will see his parents doctor. Specialists:Denies Preferred Pharmacy: [facility] Insurance: [employer] Pres[employer] Benefit: yes LNOK: Jazmine and Flavio Watson, parents Living Arrangements: Pt lives with parents and one sibling in a two story home with [facility]. Pt states he does not go to the second floor. Pt reports prior to this hospitalization he was I in ADL's. Pt denies concerns at home. He states that he was using the [facility] with therapy. He is checking with a friend to see if there is a walker he can borrow, made pt aware that he will need a tall walker. YAN VALLEJO to check back with him Saturday to see if he will need for dc home. Transportation: Pt drives self and denies concerns with transportation. DME:none HHC/SNF:Denies hx of Pt states no concerns with going home at time of dc. Pt states no further concerns/needs. CM to follow. Advised pt to ask CM if any further question/concerns/needs arise, voices understanding. Pt Goal: Home Plan: Home with possible DME
[2023-10-11 20:20] VITALS: BP 118/67; PULSE 56; RESP 16; TEMP 36.6; O2SAT 98
[2023-10-11] MEDS: tiZANidine HCl 2 MG Tablet 4 MG PO (20:24)
--- NOTE | 2023-10-12 02:49 | NURSING ---
Addendum entered by Chante Loyola 10/12/23 03:04: Upon rounding, patient and his girlfriend were both sleeping in his bed. Original Note: Patient's mom called to make sure he is going to get his next dose of morphine. She went on to say she had set an alarm to remind him to ask for his morphine. After verifying that she was on the contact list, this RN explained that he hadn't received morphine tonight and that I had given Tylenol, Toradol, Zanaflex, and had asked the doctor to increase his dose of oxy and that the oxy dose had been increased. This RN said that patient was sleeping and his pain was under control.
[2023-10-12] MEDS: Acetaminophen 325 MG Tablet 650 MG PO (02:55)
[2023-10-12] MEDS: 0.9% Saline Lock 10 ML Syringe IV ×4 (02:55→15:54)
[2023-10-12] MEDS: Ketorolac 30 MG/ML Syringe IV ×2 (02:56→09:00)
[2023-10-12 03:02] VITALS: BP 117/67; PULSE 47; RESP 16; TEMP 36.6; O2SAT 99
[2023-10-12] MEDS: oxyCODONE 5 MG Tablet PO ×3 (03:49→12:18)
[2023-10-12] MEDS: tiZANidine HCl 2 MG Tablet 4 MG PO ×2 (05:14→14:06)
[2023-10-12 08:30] VITALS: BP 120/76; PULSE 52; RESP 16; TEMP 36.7; O2SAT 97
--- NOTE | 2023-10-12 09:35 | NURSING ---
pt mother and father have been calling in to make sure pt gets his morphine iv when it is ordered they are aware but still want him to have it if he states he is in pain-pt tells me that his pain is 8-6 but just got out of shower (with girlfriend) he is talking in full sentences, making jokes about the snow and [place], no grimaces-pt currenntly denies any n/t in legs or feet -pt given iv toradol as ordered and iv left fa flushes easily w/ ns before and after
[2023-10-12] MEDS: Morphine 2 MG/ML Syringe IV ×4 (10:02→20:10)
--- NOTE | 2023-10-12 11:17 | NURSING ---
girlfriend found in pt bed with pt. explained to pt and visitor that only pt aloud in bed. girlfriend got out of bed.
[2023-10-12 11:18] VITALS: BP 127/58; PULSE 72; RESP 16; TEMP 36.8; O2SAT 99
--- NOTE | 2023-10-12 15:46 | PN.HOSP_ITS ---
Reason for Visit Reason for Visit: Diagnoses Other intervertebral disc displacement, lumbar region (10/10/23) Dorsalgia, unspecified (10/10/23) Objective Data Objective Data Vital Signs: Vital Signs Temp Pulse Resp BP Pulse Ox O2 Del Method 98.2 F 72 16 127/58 H 99 Room Air 10/12/23 11:18 10/12/23 11:18 10/12/23 11:18 10/12/23 11:18 10/12/23 11:18 10/12/23 14:00 Oxygen Delivery Method Room Air Weight: 194 lb 14.218 oz Body Mass Index (BMI) 21.9 Intake & Output: Intake and Output for Last 24 Hours 10/10/23 10/11/23 10/12/23 23:59 23:59 23:59 Intake Total 1360 / 1360 450 / 450 Output Total 650 / 650 Balance 710 / 710 450 / 450 Lab / Micro Data 10/10/23 20:55 10/10/23 20:55 Physical Exam Narrative Seen and examined. Patient at rest does not feel much pain but on movement he gets severe back spasm and lower extremity on extending lower extremities or lifting it. Patient complains of severe lower back pain after he tried to move/lift heavy concrete load. Patient works in construction company. Physical exam General: Alert, Oriented x3, Cooperative. Normal BMI HEENT: Atraumatic, PERRLA, EOMI, Normocephalic Oral: No Gingival or Mucosal Lesions/ Ulcerations Neck: Supple, No JVD, Negative Carotid Bruits Lungs: Air entry equal in bilateral lung bases. No crepitation/rhonchi Cardiovascular: Regular rate, Regular Rhythm, Normal S1, Normal S2, No murmurs Abdomen: Bowel Sounds Present, Soft, Non Tender, Non-Distended : No renal angle tenderness. No suprapubic tenderness. Extremities: No edema, Capillary Refill Less than 3 Seconds Skin: No rashes, No breakdown Musculoskeletal: No Tenderness to Palpation of Joints or Extremities. Muscle strength 4/5 at knees and hip joints, more weaker on the right knee and hip joints most likely due to pain and spasm. Spine: Tenderness present over L5-S1, L4 S1. Ipsilateral SLR and crossed SLR positive for severe back pain but no reproducible sciatica pain Neurological: Cranial nerves II-XII grossly intact, DTR 2+/4. No acute focal neurological deficit. Psych/Mental Status: Normal Affect, Appropriate. Assessment & Plan Assessment/Plan (1) Intractable back pain: PLAN: Plan 23-year-old gentleman was admitted with acute back pain very severe in nature after he pulled a piece of concrete out of the wound bending at the waist. Denies numbness tingling weakness urinary or fecal incontinence. Pain is restricted to the lower lumbar spine without radiation. During admission corrine ent had back pain with associated numbness and tingling in right lower extremity. #Intractable back pain due to L5-S1 disc protrusion with mild spinal stenosis: Patient admitted on [facility] floor. Most likely due to mild spinal stenosis and pinched nerve. MRI reviewed and shows no evidence of acute fracture or subluxation but mild annular bulge with moderate side paracentral disc protrusion at L5-S1 creating mild spinal stenosis. Patient was evaluated by orthopedic surgeon Dr. Miles. He recommended pain control and mobilization but this did not work therefore pain management Dr. Carranza consulted for epidural pain injection. Continue PT and OT. Patient also has weakness of both lower legs, right more than left. No urinary continence or fecal incontinence. Thoracic MRI normal. On pain control with Tylenol and oxycodone. 10/12: I talked to the patient friend and her girlfriend present in the room. Pain is better while he is right but gets back to spasm when he tries to raise his lower extremity or extend his knee. I also talked to pain management Dr. Hutchison and underwent clinical course. He is good for epidural injection on Saturday. #DVT prophylaxis: low risk, encourage ambulation. MRI lumbar spine No evidence for acute fracture or subluxation. Minor annular bulge at L4-5 without spinal stenosis. Mild annular bulge with moderate sized central/left paracentral disc protrusion at L5-S1 creating mild spinal stenosis. Findings as above Charges/Coding Visit Charges Inpatient E&M: 99520 Subs Hosp L2
[2023-10-12 16:18] VITALS: BP 121/60; PULSE 51; RESP 16; TEMP 36.6; O2SAT 100
[2023-10-12 21:31] VITALS: BP 120/59; PULSE 72; RESP 16; TEMP 36.7; O2SAT 96
[2023-10-13] MEDS: tiZANidine HCl 2 MG Tablet 4 MG PO (04:37)
[2023-10-13] MEDS: Morphine 2 MG/ML Syringe IV ×4 (04:38→23:43)
[2023-10-13] MEDS: 0.9% Saline Lock 10 ML Syringe IV ×6 (04:38→23:43)
[2023-10-13] MEDS: Ondansetron 4 MG/2 ML Vial IV (04:46)
[2023-10-13 08:42] VITALS: BP 117/69; PULSE 53; RESP 18; TEMP 37.2; O2SAT 98
[2023-10-13 12:01] VITALS: BMI 21.9
[2023-10-13] MEDS: oxyCODONE 5 MG Tablet PO ×2 (12:53→18:09)
[2023-10-13] MEDS: Acetaminophen 325 MG Tablet 650 MG PO (12:53)
--- NOTE | 2023-10-13 13:43 | PCM.PN.HOSP ---
Reason for Visit Reason for Visit: Diagnoses Other intervertebral disc displacement, lumbar region (10/10/23) Dorsalgia, unspecified (10/10/23) Objective Data Objective Data Vital Signs: Vital Signs Temp Pulse Resp BP Pulse Ox O2 Del Method 98.9 F 53 L 18 117/69 98 Room Air 10/13/23 08:42 10/13/23 08:42 10/13/23 08:42 10/13/23 08:42 10/13/23 08:42 10/13/23 08:45 Oxygen Delivery Method Room Air Weight: 194 lb 14.218 oz Body Mass Index (BMI) 21.9 Intake & Output: Intake and Output for Last 24 Hours 10/11/23 10/12/23 10/13/23 23:59 23:59 23:59 Intake Total 1360 / 1360 1250 / 1550 600 / 600 Output Total 650 / 650 1250 / 1250 Balance 710 / 710 1250 / 1550 -650 / -650 Lab / Micro Data 10/10/23 20:55 10/10/23 20:55 Physical Exam Narrative Seen and examined. Patient at rest does not feel much pain but on movement he gets severe back spasm and lower extremity on extending lower extremities or lifting it. He complains of severe back pain that radiates to the buttock and both thigh but does not go beyond especially on movement. Patient complains of severe lower back pain after he tried to move/lift heavy concrete load. Patient works in construction company. Physical exam General: Alert, Oriented x3, Cooperative. Normal BMI HEENT: Atraumatic, PERRLA, EOMI, Normocephalic Oral: No Gingival or Mucosal Lesions/ Ulcerations Neck: Supple, No JVD, Negative Carotid Bruits Lungs: Air entry equal in bilateral lung bases. No crepitation/rhonchi Cardiovascular: Regular rate, Regular Rhythm, Normal S1, Normal S2, No murmurs Abdomen: Bowel Sounds Present, Soft, Non Tender, Non-Distended : No renal angle tenderness. No suprapubic tenderness. Extremities: No edema, Capillary Refill Less than 3 Seconds Skin: No rashes, No breakdown Musculoskeletal: No Tenderness to Palpation of Joints or Extremities. Muscle strength 4/5 at knees and hip joints, more weaker on the right knee and hip joints most likely due to pain and spasm. Spine: Tenderness present over L5-S1, L4 S1. Ipsilateral SLR and crossed SLR positive for severe back pain but no reproducible sciatica pain Neurological: Cranial nerves II-XII grossly intact, DTR 2+/4. No acute focal neurological deficit. Psych/Mental Status: Normal Affect, Appropriate. Assessment & Plan Assessment/Plan (1) Intractable back pain: PLAN: Plan 23-year-old gentleman was admitted with acute back pain very severe in nature after he pulled a piece of concrete out of the wound bending at the waist. Denies numbness tingling weakness urinary or fecal incontinence. Pain is restricted to the lower lumbar spine without radiation. During admission patient had back pain with associated numbness and tingling in right lower extremity. #Intractable back pain due to L5-S1 disc protrusion with mild spinal stenosis: Patient admitted on [facility] floor. Most likely due to mild spinal stenosis and pinched nerve. MRI reviewed and shows no evidence of acute fracture or subluxation but mild annular bulge with moderate side paracentral disc protrusion at L5-S1 creating mild spinal stenosis. Patient was evaluated by orthopedic surgeon Dr. Miles. He recommended pain control and mobilization but this did not work therefore pain management Dr. Carranza consulted for epidural pain injection. Continue PT and OT. Patient also has weakness of both lower legs, right more than left. No urinary continence or fecal incontinence. Thoracic MRI normal. On pain control with Tylenol and oxycodone. 10/12: I talked to the patient friend and her girlfriend present in the room. Pain is better while he is right but gets back to spasm when he tries to raise his lower extremity or extend his knee. I also talked to pain management Dr. Hutchison and underwent clinical course. He is good for epidural injection on Saturday. 10/13: No acute change. Continue same regimen. Plan for epidural injection on Saturday. #DVT prophylaxis: low risk, encourage ambulation. MRI lumbar spine No evidence for acute fracture or subluxation. Minor annular bulge at L4-5 without spinal stenosis. Mild annular bulge with moderate sized central/left paracentral disc protrusion at L5-S1 creating mild spinal stenosis. Findings as above Charges/Coding Visit Charges Inpatient E&M: 58391 Subs Hosp L2
[2023-10-13 14:38] VITALS: BP 118/55; PULSE 56; RESP 18; TEMP 36.9; O2SAT 98
[2023-10-13] MEDS: Ketorolac 30 MG/ML Syringe IV (14:44)
[2023-10-13 21:00] VITALS: BP 124/70; PULSE 47; RESP 18; TEMP 36.7; O2SAT 97
--- NOTE | 2023-10-13 22:47 | NURSING ---
Patient sleeping soundly. Pt woke up and states pain 8/10 wants Morphine. Iv 2mg Morphine given. IV went bad. Hurting and Pt states they changed bloody dressing today. hand lens polisher to replace IV.
--- NOTE | 2023-10-13 23:55 | NURSING ---
New IV from charge patient stating pain still 04/08. Went to get 2mg Iv Morphine. New IV would not flush or give blood return when i returned to room. Called lithopone mill worker into room and she was able to give IV morphine.
[2023-10-14 03:00] VITALS: BP 112/58; PULSE 46; RESP 18; TEMP 36.9; O2SAT 97
[2023-10-14] MEDS: 0.9% Saline Lock 10 ML Syringe IV ×2 (05:42→09:19)
[2023-10-14] MEDS: Morphine 2 MG/ML Syringe IV ×2 (05:42→09:18)
[2023-10-14] MEDS: Ondansetron 4 MG/2 ML Vial IV (05:48)
[2023-10-14 09:25] VITALS: BP 116/60; PULSE 64; RESP 14; TEMP 36.8; O2SAT 100
--- NOTE | 2023-10-14 11:30 | PCM.PN.HOSP ---
Subjective Subjective Doing well, no issues overnight Objective Data Objective Data Vital Signs: Vital Signs Temp Pulse Resp BP Pulse Ox O2 Del Method 98.2 F 64 14 116/60 100 Room Air 10/14/23 09:25 10/14/23 09:25 10/14/23 09:25 10/14/23 09:25 10/14/23 09:25 10/14/23 09:31 Oxygen Delivery Method Room Air Weight: 194 lb 14.218 oz Body Mass Index (BMI) 21.9 Intake & Output: Intake and Output for Last 24 Hours 10/13/23 10/14/23 10/15/23 03:59 03:59 03:59 Intake Total 1550 / 1550 550 / 550 0 / 0 Output Total 1250 / 1250 350 / 350 Balance 1550 / 1550 -700 / -700 -350 / -350 Lab / Micro Data 10/10/23 20:55 10/10/23 20:55 Physical Exam Narrative General: Alert, Oriented x3, Cooperative, No apparent distress HEENT: Atraumatic, PERRLA, EOMI, Normocephalic Oral: Moist Mucosa Neck: Supple, No JVD Lungs: Clear to auscultation, Normal air movement, No rhonchi, No wheeze, No rales Cardiovascular: Regular rate, Regular Rhythm, Normal S1, Normal S2, No murmurs Abdomen: Soft, Non Tender, Non-Distended, No Hepato-splenomegaly Extremities: No edema, Capillary Refill Less than 3 Seconds Skin: No rashes, No breakdown Musculoskeletal: Back pain Neurological: Cranial nerves II-XII grossly intact, Motor Exam 5/5 strength throughout, Sensory exam intact to light touch and pain, no focal neurologic deficits Psych/Mental Status: Normal Affect, Appropriate Assessment & Plan Assessment/Plan (1) Intractable back pain: PLAN: Plan #Intractable back pain due to L5-S1 disc protrusion with mild spinal stenosis: Patient admitted on [facility] floor. Most likely due to mild spinal stenosis and pinched nerve. MRI reviewed and shows no evidence of acute fracture or subluxation but mild annular bulge with moderate side paracentral disc protrusion at L5-S1 creating mild spinal stenosis. Patient was evaluated by orthopedic surgeon Dr. Miles. He recommended pain control and mobilization but this did not work therefore pain management Dr. Carranza consulted for epidural pain injection. Continue PT and OT. Patient also has weakness of both lower legs, right more than left. No urinary continence or fecal incontinence. Thoracic MRI normal. On pain control with Tylenol and oxycodone. 10/12: I talked to the patient friend and her girlfriend present in the room. Pain is better while he is right but gets back to spasm when he tries to raise his lower extremity or extend his knee. I also talked to pain management Dr. Hutchison and underwent clinical course. He is good for epidural injection on Saturday. 10/13: No acute change. Continue same regimen. Plan for epidural injection on Saturday. 10/14/2023: Plan for epidural injection today by pain management, discussed with him the benefits of steroids over narcotics on discharge if he is stable for discharge today DVT: Ambulation MRI lumbar spine No evidence for acute fracture or subluxation. Minor annular bulge at L4-5 without spinal stenosis. Mild annular bulge with moderate sized central/left paracentral disc protrusion at L5-S1 creating mild spinal stenosis. Findings as above [employer] Civil Engineer Reflex Medical hold order details:: IF a medical hold is selected below, a suggested order for a MEDICAL HOLD will reflex upon signing the document. Next of kin: [place] law dictates a PRIORITY LIST for identifying legal decision-maker/legal next of kin in the following order (LNOK): 1st: The patient?s legal guardian, if any 2nd: The patient's spouse (if status is questionable, consult Risk Management) 3rd: The patient?s adult child(chanda) (majority, if multiple children) 4th: The patient?s parents 5th: The patient?s adult siblings (majority, if multiple children siblings) Charges/Coding Visit Charges Inpatient E&M: 46829 Subs Hosp L2
[2023-10-14] MEDS: Lactated Ringers 1,000 ML 15 ML IV (11:37)
--- NOTE | 2023-10-14 12:45 | RAD_ITS ---
STUDY: TRANSFORAMINAL EPIDURAL INJECTION LUMBAR SPINE. REASON FOR EXAM: Male, 23 years old. BLOCK, LUMBAR, EPIDURAL, L5-S1 FLUOROSCOPY TIME (if supplied): ( 6 seconds ) minutes/seconds. 1.02 mGy TECHNIQUE: Intraoperative imaging provided for L5-S1 epidural block. COMPARISON: None. RAD/OR-Steroi/Epid Inj/Lum Sac/1st IMPRESSION: Intraoperative imaging provided for L5-S1 epidural block. Electronically Signed: Sandip العلي MD at 14:33 EST ,
[2023-10-14] MEDS: Triamcinolone Acetonide 40 MG/ML Vial (12:55)
[2023-10-14 13:05] VITALS: BP 110/51; BP 116/60; PULSE 55; RESP 16; TEMP 37; O2SAT 95
[2023-10-14 13:10] VITALS: BP 104/55; BP 116/60; PULSE 54; RESP 14; O2SAT 94
[2023-10-14 13:15] VITALS: BP 100/55; BP 116/60; PULSE 60; RESP 16; TEMP 36.7; O2SAT 96
--- NOTE | 2023-10-14 13:37 | PCM.OPRPT ---
Problems Associated Problem List Diagnoses (1) Lumbar disc herniation: (2) Stenosis, spinal, lumbar: (3) Intractable back pain: Report of Operation Date of Procedure: 10/14/23 Pre-Operative Diagnosis: Acute disc herniation Lumbar spinal stenosis Intractable back pain Post-Operative Diagnosis: Acute disc herniation Lumbar spinal stenosis Intractable back pain Surgery/Procedure Performed:: L5-S1 Epidural steroid injection Surgeon: Vinod Hutchison Type of Anesthesia: MAC and Topical Anesth Description of Procedure: The patient was admitted to the preoperative area and time out performed. Vital signs were checked and the patient was moved to the procedure area and placed in the prone position. Standard monitors were applied. Sterile prep and draped performed in a regular manner. The L5-S1 interlaminar space was identified under fluoroscopic guidance. Local anesthesia was administered using Lidocaine 0.5%, to anesthetize the skin and subcutaneous tissue with 25G needle. Next a 17G Touhy needle was inserted under fluoroscopic guidance. Using the loss of resistance technique, the epidural space was identified. Needle position was confirmed on an AP and lateral views as required. Contrast material, Omnipaque 5cc, was injected under fluoroscopic guidance and showed appropriate epidurogram and epidural spread. Negative Blood and CSF aspiration was confirmed. A mixture of 5 cc Bupivicaine 0.5% and 40 mg of Triamincilone was injected. The patient tolerated the procedure well. The needle was removed intact. The patient was cleansed and a Band-Aid was placed. DISCHARGE INSTRUCTIONS: The patient was taken to the Recovery Room and discharged when discharge criteria were met in the Recovery Room. The patient was given both written and verbal postoperative discharge instructions. The patient was advised to call the Pain Management [place] or to report to the Emergency Room with any symptoms of infection, bleeding, shortness of breath, progressive weakness or any question related to the procedure. The patient stated understanding and agreement with all discharge instructions. PLAN: Follow up in 1 week in the pain management clinic. Complications None
[2023-10-14 14:05] VITALS: BP 98/59; PULSE 54; RESP 16; TEMP 36.8; O2SAT 100
--- NOTE | 2023-10-14 15:49 | CASEMGMT ---
Addendum entered by Jennifer Ceballos 10/14/23 16:04: Pt denies the need for outpt therapy. Pt states that he will be going to his local chiropractor after DC. Original Note: YAN VALLEJO to pt room at this time. Pt projected DC is today 10/14/23. Pt states that he has 2 walkers at home from family members and does not need a new one. This RN CM also questions the walker being a right fit for him regarding his height. Pt denies any further needs at this time.
--- NOTE | 2023-10-14 15:51 | DCINST_ITS ---
Discharge Instructions Diet Discharge Diet: No restrictions Activity Discharge Activity: Return to Normal Activity Dressing / Incision Call your doctor if you observe: Fever of 101 or Higher, Shortness of breath, Dizziness, Fainting spells, Swelling in the ankles, Chest pain and Increased palpitations (irregular heartbeat) Follow Up Care Test Results: Test results from this visit will be discussed in further detail at your follow- up appointment, if applicable. Discharge Plan Admission Admit Date/Time: 10/10/23 20:33 Attending Provider: Vinod Still Primary Care Provider: Care Physician,No Primary Consulting Providers: Saba Bhatti; Juliette Carranza; Wu Sahu Discharge Orders/Prescriptions Prescriptions: New prednisone 20 mg tablet 40 mg PO DAILY Qty: 14 0RF Referrals / Follow Up: Vinod Hutchison MD [Med Staff - Active Staff] - (in one week) Care Physician,No Primary [Primary Care Provider] - Disposition Disposition (needs filled in before D/C Order can be placed): Home, Self Care
--- NOTE | 2023-10-14 15:56 | PCM.DC.SUM ---
Providers Date of Admission: 10/10/23 Primary Care Physician: No Primary Care Phys Consultations 10/11/23 11:49 Consult: Pain Management Routine Consulting Provider: Juliette Carranza Reason for Consult: L5-S1 disc protrusion, mild spinal stenosis, epidural injection EMERGENT Consult: No MD Notified: Yes Date Notified: 10/11/23 Time Notified: 11:49 Method of Notification: Verbal Reason For Visit: INTRACTABLE BACK PAIN Diagnosis Discharge Diagnosis (1) Lumbar disc herniation: Status: Acute Code(s): M51.26 - Other intervertebral disc displacement, lumbar region (2) Stenosis, spinal, lumbar: Status: Acute Code(s): M48.061 - Spinal stenosis, lumbar region without neurogenic claudication (3) Intractable back pain: Status: Acute Code(s): M54.9 - Dorsalgia, unspecified Plan #Intractable back pain due to L5-S1 disc protrusion with mild spinal stenosis: [facility] Most likely due to mild spinal stenosis and pinched nerve. MRI reviewed and shows no evidence of acute fracture or subluxation but mild annular bulge with moderate side paracentral disc protrusion at L5-S1 creating mild spinal stenosis. Patient was evaluated by orthopedic surgeon Dr. Miles. He recommended pain control and mobilization but this did not work therefore pain management Dr. Carranza consulted for epidural pain injection. Continue PT and OT. Patient also has weakness of both lower legs, right more than left. No urinary continence or fecal incontinence. Thoracic MRI normal. On pain control with Tylenol and oxycodone. 10/12: I talked to the patient friend and her girlfriend present in the room. Pain is better while he is right but gets back to spasm when he tries to raise his lower extremity or extend his knee. I also talked to pain management Dr. Hutchison and underwent clinical course. He is good for epidural injection on Saturday. 10/13: No acute change. Continue same regimen. Plan for epidural injection on Saturday. 10/14/2023: Plan for epidural injection today by pain management, discussed with him the benefits of steroids over narcotics on discharge if he is stable for discharge today DVT: Ambulation MRI lumbar spine No evidence for acute fracture or subluxation. Minor annular bulge at L4-5 without spinal stenosis. Mild annular bulge with moderate sized central/left paracentral disc protrusion at L5-S1 creating mild spinal stenosis. Findings as above Medications at Discharge Home Medications prednisone 20 mg tablet 40 mg (2 x 20 mg) PO DAILY #14 tabs 10/14/23 Hospital Course Operations None Procedures None Summary of Care Provided Minutes Spent on Discharge: 34 Hospital Course: Per HPI: MICHELLE PAGE, is a 23 M with a PMH as outlined who presents via [facility] ED on 10/10/2023 with a complaint of acute back pain. Pain was very severe; he tried pulling a piece of concrete out of the ground, bending at the waist. He started having severe back pain. He said his symptoms initially started improving after some stretching and with bending backwards, but worsened when he tried to move some pieces of concrete again. He denied any numbness or tingling, weakness, urinary or fecal incontinence. The pain radiated down his RLE mainly. REview of systems was otherwise negative. Vitals in the ED were BP of 133/76, MA of 81, RR of 17 and he was saturating at 98% on room air. CBC and BMP had not been done. Thoracic and lumbar spine MRI showed no acute fracture or subluxation and showed minor annular bulge at L4-5 without spinal stenosis, and mild annular bulge with moderate sized central/left pareacentral disc protrusion at L5-S1 causing mild spinal stenosis. He is being admitted to be managed for intractable back pain. Hospital Course: 1. Intractable back pain secondary to an L5-S1 disc protrusion with mild spinal stenosis?23-year-old male was moving a block of cement and he lifted it poorly and hurt his back. He has localized low back pain denies any numbness or tingling in his lower extremities. He denied any urinary or fecal incontinence, he was having some pain rating down his right leg which has come and gone during his hospitalization. Orthopedic surgery had evaluated him and felt that he would benefit from pain management with a possible injection. Pain management was consulted and they performed the injection today on the day of discharge. We discussed the plan for discharge today and he expressed understanding of the risk and benefits of going home and states that he would like to go home today. His pain is much better controlled postinjection and he was rating it a 2 or 3 out of 10. He was ambulatory and did work with physical therapy and states that he is going to work with physical therapy through his chiropractor. Will plan for 7 days of steroids on discharge which will get him to his pain management appointment as pain management like to see him in a week postdischarge. Weight / BMI Weight Weight: 194 lb 14.218 oz Body Mass Index (BMI) 21.9 ABG / Lab / Microbiology Data 10/10/23 20:55 10/10/23 20:55 Radiography Diagnostic Testing: Radiology Impression Therapeutic Steroid Injection 10/14/23 12:45 IMPRESSION: Intraoperative imaging provided for L5-S1 epidural block. Electronically Signed: Sandip العلي MD at 14:33 EST , D/C Instructions Discharge Diet: No restrictions Call your doctor if you observe: Fever of 101 or Higher, Shortness of breath, Dizziness, Fainting spells, Swelling in the ankles, Chest pain and Increased palpitations (irregular heartbeat) Meaningful Use Info Meaningful Use Diagnoses (Choose all that apply): None applicable Discharge Plan Admission Admit Date/Time: 10/10/23 20:33 Attending Provider: Vinod Still Primary Care Provider: Care Physician,No Primary Consulting Providers: Saba Bhatti; Juliette Carranza; Wu Sahu Discharge Orders/Prescriptions Prescriptions: New prednisone 20 mg tablet 40 mg PO DAILY Qty: 14 0RF Referrals / Follow Up: Vinod Hutchison MD [Med Staff - Active Staff] - (in one week) Care Physician,No Primary [Primary Care Provider] - Disposition Disposition (needs filled in before D/C Order can be placed): Home, Self Care Charges/Coding Visit Charges Inpatient E&M: 90563 Disch Hosp >30min
--- NOTE | 2023-10-14 16:10 | PHA.DC.MC.R ---
Pharmacy [facility] Pharmacy Service has performed discharge medication reconciliation and counseling for this patient. The patient's discharge medication list was reviewed for discrepancies and discrepancies were resolved. The patient was counseled on the following discharge medications and changes in medications for homegoing were reviewed. The Reason for Use, instructions for use, and potential side effects were reviewed for all new medications. The patient's questions regarding all of their medications were answered. 1. Prednisone 40 mg PO daily x 7 days The patient was able to verbally demonstrate an understanding of their discharge medications. Medications at Discharge Home Medications prednisone 20 mg tablet 40 mg (2 x 20 mg) PO DAILY #14 tabs 10/14/23
== END 2023-10-14 17:44 | disposition home or self-care (01) ==
LOC: ED 17:01 → MS3 20:59
PROVIDERS: Anesthesiology; Admitting Provider Student in an Organized Health Care Education/Training Program; Emergency Provider Student in an Organized Health Care Education/Training Program; Visit Provider Family Medicine
PROC: 3E0S3BZ Introduction of Anesthetic Agent into Epidural Space, Percutaneous Approach (ICD-10-PCS; CPT 62322; principal; 2023-10-14 12:30)
DX: M51.26 Other intervertebral disc displacement, lumbar region (principal); M51.27 Other intervertebral disc displacement, lumbosacral region; F17.210 Nicotine dependence, cigarettes, uncomplicated; M48.061 Spinal stenosis, lumbar region without neurogenic claudication; M51.36 Other intervertebral disc degeneration, lumbar region; F17.290 Nicotine dependence, other tobacco product, uncomplicated
CPT/HCPCS: 01992; 64483; 51798; 72100; 72146; 72148; 80048; 85025; 96372; 96374; 96375; 96376; 97110; 97116; 97162; 97530; 99221; 99284; J7120; A4216; G0378; J2405

== ENCOUNTER 2023-10-29 05:31 | Inpatient (IN) | payer OTHER, SELFPAY ==
--- NOTE | 2023-10-25 09:50 | NURSING ---
CALLED [facility] OFFICE REGARDING MRSA/MSSA SCREEN. PT DOES NOT NEED SCREEN FOR SURGERY ON 10/29.
[2023-10-25 14:08] LABS: HIV - WCH Non-Reactive (Nonreactive)
[2023-10-27 08:08] LABS: Hepatitis A AB, Total Positive (Negative)
--- NOTE | 2023-10-28 13:22 | HP.PCM_ITS ---
History and Physical Add?Addendum MR#: [id number] Acct: [id number] Name: MICHELLE PAGE Rep #: [id number] : 2000 Provider: Dr. Ever Tay DO Age/Sex: 23/M Location: [facility] [place] Status: Signed Intake Vital Signs 10/10/2420:28 10/23/2412:50 Height 6 ft 7 in 6 ft 7 in Weight: 193 lb BMI 21.7 Intake Visit Reasons: LUMBAR SPINE Chief Complaint: low back pain Is patient in pain?: Yes (left low back ) Pain scale (1-10): 9 Allergies No Known Allergies Allergy (Verified 10/23/23 13:59) Medications prednisone 20 mg tablet 40 mg (2 x 20 mg) PO DAILY #14 tabs 10/14/23 [Rx] PFSH Medical History Seizures Vapes non-nicotine containing substance Surgical History Hx of appendectomy Social History Smoking Status: Current every day smoker tobacco type: cigarettes, cigars and e-cigarettes HPI LUMBAR SPINE Chief Complaint: left low back pain Details: This documentation accurately reflects the service provided and the decisions made by me, Dr. Ever Tay DO 10/23/23 1350. Part of today?s visit was documented by [ ], acting as scribe. MICHELLE PAGE is a 23 year old M here today for low back pain. Pt. advises he injured his low back on 10-10-22 as he twisted wrong when he was lifting concr ete. He was seen in [facility] ED where he was treated with pain meds and MRI was done. He had an epidural steroid injection on 10-14-[address] Hutchison. He has been experiencing sharp pains in left low back area where his injection was given ever since. He states the inflammation has improved but he continues to have pain. He states the pain was radiating down his left leg and on his left leg went numb all the way down to his toes and remains numb. He rates his pain 9/10 and states it's a constant deep ache down his entire left side. Michelle is a very pleasant young man that presents in the company of his father. The story is the way it is told above by my scribe. Is been 13 days now since the injury occurred. He continues to have severe pain. The prednisone is not even touching his pain. On examination it is noted that he can stand on his toe with the right leg but he cannot even move his heel off the ground with his left. This of course involves his S1 nerve root. The left peroneal is 3/5 in strength and I can easily overcome it with 1 finger. His Achilles reflex is completely absent of course on the right it is 2+. He has very positive tension signs he has extremely positive straight leg raising. He has hypoesthesia of the S1 distribution. He has pain all the way across his low back. He has pain with flexion or extension. He has good motor strength of the other major muscle groups of both lower extremities other than the S1 distribution on the left. In addition he has positive contralateral straight leg raising. When I raise up the right leg shoots pain down the left buttocks thigh and leg on the left. These are very significant neurological deficits the need to be addressed immediately. I went over the MRI scan that demonstrates herniation of the L5-S1 disc more to the left side with what is probably a free fragment. There is also some desiccation of the L5-S1 disc. There is also decreased disc space of that disc. The surgery was discussed at length with Michelle and his father. The rationale for the 360 degree fusion was explained. The risks and benefits were also explained with the patient and his dad. 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 We need to remove the entire disc from the front put a cage and in the plate and then do the laminectomy on the back and internally fix it from the back also. They both understood the rationale. In addition we spoke of possible risks and complications among those the possibi lity of , coma, paralysis, dural leak, blood clot in the legs, blood clot in the lungs, myocardial infarction, stroke, infection, among others. The benefits of the surgery are obvious as he has a significant neurological deficit that must be addressed. He is too young to spend the rest of his life with a floppy foot. Already called to Dr. Pedraza my approach surgeon for the front. He is moving his Saturday case to another day so that he can do my approach for me this next Saturday. I were already informed the hardware spine rep so that we can get things moving. I have already discussed it with the OR. We are doing the case on an urgent basis because of his neurological deficit. [employer] and neuromonitoring have been already contacted. I will see him again next Saturday morning. Coding Level of Care Code Off vis,new,level 3 Diagnoses Herniated nucleus pulposus, L5-S1, left M51.27 Time Spent (min) 40 Assessment and Plan Assessment and Plan (1) Herniated nucleus pulposus, L5-S1, left: Status: Acute
[2023-10-29] VITALS (15 sets, daily range): BP systolic 93–130; BP diastolic 51–78; PULSE 52–104; RESP 16–18; TEMP 36.4–36.9; O2SAT 96–100; BMI 21.8; BMI 21.9
--- OUTSIDE RECORDS SUMMARY | 2023-10-29 05:44 | XMS RPT_ITS | CCD ---
Author Name Unknown Address [address] [place] [id number] Organization [facility] Care Team Providers Care Roving Or Yarn Color Checker Name Role Phone DAVID HAM Unavailable Unavailable REFERRED, SELF Unavailable Unavailable DAVID HAM Unavailable Unavailable DAVID HAM Unavailable Unavailable REFERRED, SELF Unavailable Unavailable DAVID HAM Unavailable Unavailable KAVON, DR SOPHIA Roth Admitting Unavaila ble KAVON, DR SOPHIA Roth Attending Unavaila ble KAVON, DR SOPHIA Roth Primary Care Unavaila ble Unavailable Primary Care Provider MATT Abernathy Referring Unavailable OLDER, SHERINE Referring Unavailable Allergies Allergy Classification Reported Allergen(s) Allergy Type Date of Onset Reaction(s) Facility (6 sources) vancomycin; Translations: [VANCOMYCIN] Drug Allergy 11-19-2013 Rash [facility] Repository Medications Current Medications Medication Drug Class(es) [...] 10:07-0400 Body temperature 98.01 [degF] Alva Echavarria FISHERIES SPECIALIST.HYDRAULIC PUNCH PRESS OPERATOR Work Phone: [facility] 07-07-2023 10:07-0400 Body weight 93.89 kg Alva Echavarria FISHERIES SPECIALIST.HYDRAULIC PUNCH PRESS OPERATOR Work Phone: [facility] 07-07-2023 10:07-0400 Diastolic blood pressure 70 mm[Hg] Alva Echavarria FISHERIES SPECIALIST.HYDRAULIC PUNCH PRESS OPERATOR Work Phone: [facility] 07-07-2023 10:07-0400 Heart rate 76 /min Alva Echavarria FISHERIES SPECIALIST.HYDRAULIC PUNCH PRESS OPERATOR Work Phone: [facility] 07-07-2023 10:07-0400 Respiratory rate 16 /min Alva Echavarria FISHERIES SPECIALIST.HYDRAULIC PUNCH PRESS OPERATOR Work Phone: [facility] 07-07-2023 10:07-0400 SaO2% (BldA) [Mass fraction] 97 % Alva Echavarria FISHERIES SPECIALIST.HYDRAULIC PUNCH PRESS OPERATOR Work Phone: [facility] 07-07-2023 10:07-0400 Systolic blood pressure 118 mm[Hg] Alva Echavarria FISHERIES SPECIALIST.HYDRAULIC PUNCH PRESS OPERATOR Work Phone: [facility] 11-15-2022 16:48-0500 Body temperature 98.2 [degF] Matt Ware FISHERIES SPECIALIST.HYDRAULIC PUNCH PRESS OPERATOR Work Phone: [facility] 11-15-2022 16:48-0500 Body weight 91.35 kg Matt Ware FISHERIES SPECIALIST.HYDRAULIC PUNCH PRESS OPERATOR Work Phone: [facility] 11-15-2022 16:48-0500 Diastolic blood pressure 62 mm[Hg] Matt Ware FISHERIES SPECIALIST.HYDRAULIC PUNCH PRESS OPERATOR Work Phone: [facility] 11-15-2022 16:48-0500 Heart rate 64 /min Matt Ware FISHERIES SPECIALIST.HYDRAULIC PUNCH PRESS OPERATOR Work Phone: [facility] 11-15-2022 16:48-0500 Respiratory rate 16 /min Matt Ware FISHERIES SPECIALIST.HYDRAULIC PUNCH PRESS OPERATOR Work Phone: [facility] 11-15-2022 16:48-0500 SaO2% (BldA) [Mass fraction] 98 % Matt Ware FISHERIES SPECIALIST.HYDRAULIC PUNCH PRESS OPERATOR Work Phone: [facility] 11-15-2022 16:48-0500 Systolic blood pressure 118 mm[Hg] Matt Ware FISHERIES SPECIALIST.HYDRAULIC PUNCH PRESS OPERATOR Work Phone: [facility] Encounters Encounter Date Encounter Type Care Provider Facility Start: 07-07-2023 End: 07-07-2023 [facility] Start: 07-07-2023 End: 07-07-2023 Patient encounter procedure Alva Echavarria FISHERIES SPECIALIST.HYDRAULIC PUNCH PRESS OPERATOR Work Phone: [facility] Procedures Date Procedure Procedure Detail Performing Clinician Start: 11-16-2022 Dup-scan artl christoph abdl/pel/scrot&/rpr orgn com Matt Ware FISHERIES SPECIALIST.HYDRAULIC PUNCH PRESS OPERATOR Work Phone: Start: 11-16-2022 Us scrotum & [facility] FISHERIES SPECIALIST.HYDRAULIC PUNCH PRESS OPERATOR Work Phone: Plan of Treatment Date Care Activity Detail Author Start: 03-13-2029 Urine microalbumin profile DTaP,Tdap,Td Vaccine (7 - Td or Tdap) [facility] Start: 05-31-2023 Covid-19 Vaccine () Covid-19 Vaccine () [facility] Start: 05-31-2023 Influenza [facility] Start: 09-30-2022 DEPRESSION ASSESSMENT DEPRESSION ASSESSMENT [facility] Start: 01-10-2022 COVID-19 VACCINE (2 - Booster for Nelida series) COVID-19 VACCINE (2 - Booster for Nelida series) [facility] Start: 2020 Urine microalbumin profile [facility] Start: 2019 HEPATITIS C SCREENING HEPATITIS C SCREENING [facility] Start: 2019 HIV SCREENING HIV SCREENING [facility] Start: 2017 Meningococcal B Vaccine: Consider Based On Risk (1 of 2 - Patient Seeks Protection) Meningococcal B Vaccine: Consider Based On Risk (1 of 2 - Patient Seeks Protection) [facility] Start: 2015 PEDS TO ADULT TRANSITION ANNUAL ASSESSMENT PEDS TO ADULT TRANSITION ANNUAL ASSESSMENT [facility] Start: 2013 PEDS TO ADULT TRANSITION INITIAL DISCUSSION PEDS TO ADULT TRANSITION INITIAL DISCUSSION [facility] Start: 2012 HPV VACCINE (1 - Male 2-dose series) HPV VACCINE (1 - Male 2-dose series) [facility] Start: 2011 MENINGOCOCCAL B: Consider based on risk (1 of 2 - Risk Bexsero 2-dose series) MENINGOCOCCAL B: Consider based on risk (1 of 2 - Risk Bexsero 2-dose series) [facility] Start: 2010 HPV Vaccine (1 - Male 2-dose series) HPV Vaccine (1 - Male 2-dose series) [facility] Start: 2001 HEPATITIS B (1 of 3 - 3-dose series) HEPATITIS B (1 of 3 - 3-dose series) [facility] Start: 2001 Hepatitis B Vaccine (1 of 3 - 3-dose series) Hepatitis B Vaccine (1 of 3 - 3-dose series) [facility] End: 12-15-2023 Dup-scan artl christoph abdl/pel/scrot&/rpr orgn com US DOPPLER COMPLETE Radiology STAT Pain in left testicle 1 Occurrences starting 11/15/2022 until 12/15/2023 [facility] Work Phone: Immunizations Immunization Date Immunization Notes Care Provider Fa cility 07-20-2022 influenza virus vacc ine, unspecified formulation Alva Echavarria FISHERIES SPECIALIST.HYDRAULIC PUNCH PRESS OPERATOR Work Phone: [facility] Payers Date Payer Category Payer Unknown [employer] [id number] 2023-Present [phone] [address] [place] [address] Indemnity [id number] 2022 [employer] ( and others) [id number] 2001 Unknown [id number] Private Health Insurance [id number] Unknown [id number] Unknown [id number] Social History Date Type Detail Facility Start: 11-16-2020 End: 02-17-2023 Tobacco smoking status NHIS Never smoked tobacco [facility] Start: 11-16-2020 End: 02-17-2023 Tobacco use and exposure User of smokeless tobacco [facility] Start: 11-15-2022 End: 07-07-2023 Alcohol intake Current drinker of alcohol (finding) [facility] Start: 11-16-2020 End: 02-17-2023 Tobacco Comment electronic cig [facility] Start: 2001 Sex Assigned At Not on file [facility] Start: 11-16-2020 End: 07-07-2023 History of Social function [facility] Start: 11-16-2020 End: 07-07-2023 Tobacco use panel [facility] National Score (1-10 0), lower number is lower risk Not on file [facility] Clinical Notes 11-15-2022 to 07-07-2023 Patient InstructionsAlva Echavarria APRN.CNP - 07/07/2023 10:11 AM EDTTelephone Encounter - Shanika Metz MA - 11/16/2022 6:26 PM Vernell Calix RDMS - 11/16/2022 1:45 PM EST Note Date & Type Note Facility 07-07-2023 Note HNO ID: [id number] Author: Alva Echavarria APRN.CNP Service: ? Author Type: Nurse Practitioner Type: Progress Notes Filed: 07/07/2023 10:31 AM Note Text: This note was created using [employer]. Subjective Michelle Watson is a 22 year [...] history is provided by the patient. No multi disciplined language analyst was used. Rash This is a new [...] bruising or lesion. (more content not included)... [facility] 07-07-2023 Instructions Alva Echavarria APRN.CNP - 07/07/2023 10:15 AM EDT Patient instructed to: * Use cold compresses, 20 minutes 4-6 times per day * Use Lacassine Solution and Aveeno products as needed. * Wash all clothes. * Return to primary care provider if no relief in 3-4 days. documented in this encounter [facility] 07-07-2023 History of Presen t illness Narrative This note was created using [employer]. Subjective Michelle Watson is a 22 year [...] history is provided by the patient. No multi disciplined language analyst was used. Rash This is a new [...] worsen. - Discussed red flags Alva Echavarria APRN.HYDRAULIC PUNCH PRESS OPERATOR documented in this encounter [facility] 06-23-2023 Note HNO ID: [id number] Author: Orly Kearney APRN.HYDRAULIC PUNCH PRESS OPERATOR Service: ? Author Type: Nurse Practitioner Type: Progress Notes Filed: 06/23/2023 10:07 AM Note Text: Subjective The history is provided by the patient. No multi disciplined language analyst was used. EV Watson is a 22 [...] have confirmed and edited as necessary, the [facility] Review of Systems Constitutional: Negative for [...] detail warranting prompt ER evaluation. Orly Kearney APRN.HYDRAULIC PUNCH PRESS OPERATOR [facility] 02-18-2023 Note HNO ID: [id number] Author: RT Ted(R) Service: Nuclear Medicine Author [...] RT Ted(R) February 18, 2023 3:15 PM [facility] 02-17-2023 Note HNO ID: [id number] Author: Sherine Guzman APRN.HYDRAULIC PUNCH PRESS OPERATOR Service: ? Author Type: Nurse Practitioner Type: [...] Patient agreeable to treatment plan. Sherine Guzman APRN.[facility] 11-16-2022 Miscellaneous Notes Patient notified of results, verbalized understanding of instructions given. Shanika Metz MA ----- Message from Adal Dhillon MD sent at 11/16/2022 5:29 PM EST ----- Ultrasound showed enlarged veins in the scrotum as expected. Follow up with urology if symptoms persist. documented in this encounter [facility] 11-16-2022 Note HNO ID: [id number] Author: Vernell Enriquez RDMS Service: ? Author Type: Head Of Music Type: Progress Notes Filed: 11/16/2022 2:27 PM [...] Enriquez RDMS November 16, 2022 2:27 PM [facility] 11-16-2022 History of Presen t illness Narrative [...] 2022 2:27 PM documented in this encounter [facility] 11-15-2022 Note HNO ID: [id number] Author: Matt Ware APRN.THI Service: ? Author [...] [facility] out [facility] due to previous history. Follow-up with PCP as needed. Red flags prompt relation discussed. Patient verbalized understand agrees with plan of care Matt Ware APRN.[facility] 11-15-2022 History of Presen t illness Narrative [...] torsion he will be seen in ER [facility] for repeat ultrasound to rule out torsion due to previous history. Follow-up with PCP as needed. Red flags prompt relation discussed. Patient verbalized understand agrees with plan of care Matt Ware APRN.HYDRAULIC PUNCH PRESS OPERATOR documented in this encounter [facility] documented [facility] Diagnosis Contact dermatitis due to plant- Primary Contact dermatitis and other eczema due to plants (except food) [facility] Pain in left testicle Unspecified disorder of male genital organs [facility])* Diagnostic Procedure Only (Urgent) - Closed Specialty Diagnoses / Procedures Referred By Contac t Referred To Contact US IMAGING Diagnoses Pain in left testicle Procedures US DOPPLER COMPLETE DUP-SCAN ARTL CHRISTOPH ABDL/PEL/SCROT&/RPR ORGN COM Matt Ware APRN.HYDRAULIC PUNCH PRESS OPERATOR [address] [place] [address] [place] [address] Referral ID Status Reason Start Date Expiration Date V isits Requested Visits Authorized [id number] Closed Auto-Generate d Referral 11/15/2022 12/15/2023 1 1 * Diagnostic Procedure Only (Urgent) - Closed Specialty Diagnoses / Procedures Referred By Contac t Referred To Contact US IMAGING Diagnoses Pain in left testicle Procedures US SCROTUM AND CONTENTS US SCROTUM & CONTENTS Matt Ware APRN.HYDRAULIC PUNCH PRESS OPERATOR [address] [place] [address] [place] [address] Referral ID Status Reason Start Date Expiration Date V isits Requested Visits Authorized [id number] Closed Auto-Generate d Referral 11/15/2022 12/15/2023 1 1 [facility] Summary Purpose Family History No Family History Records FoundNo Family History Records FoundNo Family History Records Found Advance Directives No Advanced Directives Records FoundNo Advanced Directives Records FoundNo Advanced Directives Records Found Reason for Referral Specialty Diagnoses / Procedures Referred By Contac t Referred To Contact Urology Diagnoses Pain in left testicle Procedures CONSULT TO UROLOGY OFFICE/OUTPATIENT [facility] HIGH MDM 60-74 MINUTES Matt Ware APRN.HYDRAULIC PUNCH PRESS OPERATOR [address] [place] [address] Referral ID Status Reason Start Date Expiration Date Visits Requested Visits Authorized [id number] Pending Review PCP Requested Referral 11/15/2022 11/15/2023 1 1 Specialty Diagnoses / Procedures Referred By Bernice t Referred To Contact US IMAGING Diagnoses Pain in left testicle Procedures US DOPPLER COMPLETE DUP-SCAN ARTL CHRISTOPH ABDL/PEL/SCROT&/RPR ORGN [facility] Matt Ware APRN.HYDRAULIC PUNCH PRESS OPERATOR [address] [place] [address] [facility] Referral ID Status Reason Start Date Expiration Date Visits Requested Visits Authorized [id number] Pending Review Auto-Generat ed Referral 11/15/2022 12/15/2023 1 1 Specialty Diagnoses / Procedures Referred By Bernice t Referred To Contact US IMAGING Diagnoses Pain in left testicle Procedures US SCROTUM AND CONTENTS US SCROTUM & CONTENTS Matt Ware APRN.HYDRAULIC PUNCH PRESS OPERATOR [address] [place] [address] [facility] Referral ID Status Reason Start Date Expiration Date Visits Requested Visits Authorized [id number] Authorized Auto-Generat ed Referral 11/15/2022 12/15/2023 1 1 Additional Source Comments (unrecognized sect ion and content) No Status Records FoundNo Status Records FoundNo Status Records Found INFORMATION SOURCE (unrecogn ized section and content) DATE CREATED AUTHOR AUTHOR'S ORGANIZ ATION 06/06/2022 [facility] DATE CREATED AUTHOR AUTHOR'S ORGANIZ ATION 07/09/2023 [facility] Source Comments (unrecognize d section and content) In the event this informatio n is protected by the Federal Confidentiality of Alcohol and Drug Abuse Patient Records regulations: The Federal rules restrict any use of the information to criminally investigate or prosecute any alcohol or drug abuse patient.[facility] the event this information is protected by the Federal Confidentiality of Alcohol and Drug Abuse Patient Records regulations: The Federal rules restrict any use of the information to criminally investigate or prosecute any alcohol or drug abuse patient.[facility] the event this information is protected by the Federal Confidentiality of Alcohol and Drug Abuse Patient Records regulations: The Federal rules restrict any use of the information to criminally investigate or prosecute any alcohol or drug abuse patient.[facility] the event this information is protected by the Federal Confidentiality of Alcohol and Drug Abuse Patient Records regulations: The Federal rules restrict any use of the information to criminally investigate or prosecute any alcohol or drug abuse patient.[facility] Reason for Visit (unrecogniz ed section and content) Reason Comments Results Reason Comments Rash itching x 5 days Reason Comments Radiology US Specialty Diagnoses / Procedures Referred By Bernice t Referred To Contact US IMAGING Diagnoses Pain in left testicle Procedures US SCROTUM AND CONTENTS US SCROTUM & CONTENTS Matt Ware, [place].HYDRAULIC PUNCH PRESS OPERATOR [address] [place] [address] [place] [address] Referral ID Status Reason Start Date Expiration Date V isits Requested Visits Authorized [id number] Closed Auto-Generate d Referral 11/15/2022 12/15/2023 1 [...] BE BASED ON THE PRIMARY CLINICAL RECORDS. [employer] provides no warranty or guarantee of the accuracy or completeness of information in this document.
[2023-10-29] MEDS: Lactated Ringers 1,000 ML 15 ML IV (06:10)
[2023-10-29 06:34] LABS: Magnesium 2.4 mg/dL (1.6-2.6)
[2023-10-29] MEDS: Acetaminophen 500 MG Tablet 1000 MG PO ×3 (06:40→21:37)
[2023-10-29] MEDS: Magnesium 1 GM over 15 mins IV (07:09)
--- NOTE | 2023-10-29 07:30 | DISC_PTH ---
PATHOLOGY RESULTS PATIENT: MICHELLE PAGE LOC: MS3 U#:[id number] AGE/SX: 23/M ROOM[facility] RE10/29/[address]: Dr. Ever Tay DO : 2000 BED: 1 DIS: 10/31/2023 SPEC #: [id number] RECD: 10/29/23 15:19 STATUS: EARL REQ #: [id number] MIAN: 10/29/23 07:[address]: Ever Tay DEPT: SURGICAL PATHOLOGY RECD BY: Amber Alicea ENTERED: 10/30/23 08:40 SP TYPE: DISC OTHR DR: MD Dr. Fercho Tamayo, DO MD Dr. Gini Hardy MD Dr. Achintya Singh, MD Dr. Autumn L White, MD Dr. Mary Catherine Sementi, DO Dr. Declan Dailey, DO MD Darien Almonte MD Dr. Eric Jopperi, DO MD Dr. Carlos Dyson MD Dr. James Mooney, MD Dr. Jonathan Vogt, DO Dr. Elida Monet, DO Dr. Jeff Pierce, DO MD Dr. Vinod Cordon MD Dr. Prakash Chand, MD Dr. Paul Nielsen, MD Dr. Paige Pierce, MD Dr. Ryan Burkholder, MD No Primary Care Phys BUBBA Ventura PA Tissues: Intervertebral disc, NOS Procedures: Surgery Specimen Level III HEADER OPERATION: ERAS, 360 lumbar fusion L5-S1 with left-sided laminectomy PRE-OP DIAGNOSIS: Herniated nucleus pulposus L5-S1 left TISSUE SUBMITTED: L5-S1 disc MICROSCOPIC DIAGNOSIS L5-S1 disc, laminectomy: Pieces of fibrocartilaginous tissue and hyaline cartilaginous tissue with reactive and degenerative changes. Beryl 10/31/2023 MICROSCOPIC DESCRIPTION Slides are reviewed. GROSS DESCRIPTION Received in fixative is one container labeled with the patient's name and designated L5-S1 disc. The specimen consists of multiple irregular fragments of hooper, indurated tissue that in aggregate measure 6.0 x 6.0 x 2.0 cm. The largest piece measures 3.5 cm in greatest dimension. [employer] sections are submitted in one cassette. / ZAKIA:[email or web address] 10/30/2023 TC:5 CPT: 42498
[2023-10-29] MEDS: Cefazolin 2 GM in 0.9% Normal Saline (100mL Bag) 100 ML IV (07:42)
[2023-10-29] MEDS: Heparin 10,000 UNITS/10 ML Vial 10000 UNITS ×3 (07:42→09:28)
--- NOTE | 2023-10-29 09:25 | RAD_ITS ---
INDICATION: 360 FUSION L5-S1 WITH LAMINECTOMY, LEFT EXAMINATION/TECHNIQUE: X-RAY - XR Spine Lumbar 1 View COMPARISON: No relevant prior comparison study available FINDINGS: Markedly limited examination obtained intraoperatively. Crosstable lateral view of the lumbar spine was obtained difficult to evaluate. The examination was not performed for diagnostic purposes. RAD/Spine 1 View Any Level IMPRESSION: Nondiagnostic intraoperative exam as described above. Electronically Signed: Trev Villegas MD at 19:09 EST ,
[2023-10-29] MEDS: THROMBIN (RECOMBINANT) 20,000 UNIT VIAL 20000 UNIT TOPICAL (09:27)
--- NOTE | 2023-10-29 09:40 | RAD_ITS ---
STUDY: X-RAY - LUMBAR SPINE REASON FOR EXAM: Male, 23 years old. 360 FUSION, TECHNIQUE: Lateral view of the lumbar spine. COMPARISON: None FINDINGS: Status post anterior fusion at L5-S1 with disc spacer placement . RAD/Spine 1 View Any Level IMPRESSION: Anterior fusion at L5-S1. Electronically Signed: Darrick Ordoñez DO at 22:12 EST ,
--- NOTE | 2023-10-29 10:37 | RAD_ITS ---
STUDY: X-RAY - LUMBAR SPINE REASON FOR EXAM: Male, 23 years old. Spinal fusion. Follow-up. TECHNIQUE: Single lateral view(s) of the lumbar spine was obtained. COMPARISON: Earlier in the day. FINDINGS: Single lateral view shows anterior fusion at L5-S1 with intervertebral disc prosthesis. RAD/Spine 1 View Any Level IMPRESSION: Single lateral view of the lumbar spine as described. Electronically Signed: Israel Villareal MD at 15:38 EST ,
--- NOTE | 2023-10-29 10:37 | RAD_ITS ---
STUDY: X-RAY - LUMBAR SPINE REASON FOR EXAM: Male, 23 years old. Single lateral intraoperative documentation view spinal fusion. TECHNIQUE: A single lateral view was obtained. COMPARISON: Earlier in the day. FINDINGS: Single lateral view shows anterior fusion at L5-S1 with intervertebral disc prosthesis. RAD/Spine 1 View Any Level IMPRESSION: Intraoperative lateral documentation view. Electronically Signed: Israel Villareal MD at 12:36 EST ,
--- NOTE | 2023-10-29 10:57 | PCM.OPRPT ---
Report of Operation Description of Surgical Findings:: Preoperative diagnosis: Herniated disc L5-S1 with intractable pain and neurological deficit Postoperative diagnosis: Same Procedures: #1 anterior lumbar interbody fusion L5-S1 CPT code 77988 #2 application of spine plate L5-S1 CPT code 59373/59 #3 insertion of anterior cage L5-S1 CPT code 60442 #4 bone marrow aspirate right iliac crest CPT code 83221 #5 bone allograft L5-S1 CPT code 49581 Co-surgeons: Dr. Tay and Dr. Pedraza Anesthesia: General endotracheal administered by [facility] EBL: 50 cc Drains: None Complications: None Procedure: Patient was taken to the OR where he was placed in the supine position on the operating table. A Harrell catheter was inserted. Neuromonitoring placed her leads on the patient. The abdomen was prepped and draped in standard fashion. Initially through a small puncture incision over the right iliac crest we placed a Jamshidi needle in place and aspirated 60 cc of bone marrow aspirate. This was handed off to the filter changing technician in the room who would spend the stem cells and separate them from other cells and concentrated the stem cells 10 times. The operative approach in the abdomen is then described in Dr. Pedraza's operative summary. Once he had good exposure at L5-S1 this was confirmed with an x-ray and a needle marker. I then remove the anterior annulus with a long 15 blade. Pituitaries were used to remove that and more nucleus from within the disc space. I then used both ring curettes and bowl curettes to remove cartilage off both endplates and remove remaining disc. Note that there was a tear in the posterior longitudinal ligament and as I was removing disc I think some of the extruded disc was in fact removed through the front. I put a probe through the tear in the ligament and could not expose any more disc. Once this was done I then took my measurements for a cage. We settled on a 12 mm high 25 x 35 mm 8 degree cage. I then used a broach to broach this space repeatedly until I had good bleeding and flat bone. The cage was then filled with allograft and the allograft was then soaked in the patient's concentrated stem cells. This was then tamped into place and countersunk 2 to 3 mm. A 27 mm plate was then used. It was a pre-bent plate once in place we then used an awl to punch 2 holes into L5 and 2 into S1. We then entered with a 2 30 mm screws and the top and 2 25 mm screws at S1. The locking isms were then activated. An intraoperative x-ray was taken and the lateral projection demonstrated excellent position of the cage the plate and the screws. Amniotic membrane was then placed over the top of the plate to prevent adhesions from the surrounding vessels. The closure is then described in Dr. Pedraza's operative summary. This is the end of operative summary on Daniel Watson. This is Dr. Tay dictating.
--- NOTE | 2023-10-29 14:06 | OP.PCM_ITS ---
Report of Operation Description of Surgical Findings:: Preoperative diagnosis: Herniated disc L5-S1 with severe left S1 radiculopathy and neurological deficit Postoperative diagnosis: Same Procedure: #1 posterior fusion L5-S1 CPT code 24535 #2 lumbar laminectomy discectomy L5-S1 CPT code 58235 #3 internal fixation L5-S1 CPT code 29433 #4 allograft CPT code 00133 Surgeon: Dr. Tay Senior Project Leader/Team Lead: Rambo from the OR [facility] Anesthesia: General endotracheal by [facility] EBL: 40 cc Drains: None Procedure: After the anterior surgery was done and the abdomen closed the pa tient was then moved onto the prone position on the Ruy frame. After appropriate positioning with care to protect his bony prominences ulnar nerves of both elbows the brachial plexus and his facial features and genitalia the back was prepped and draped standard fashion. I then made a longitudinal incision centered over L5-S1. Subcutaneous tissues were incised the length of skin incision. I opened the lumbar fascia first to the left of the spinous processes and elevated the paravertebral muscles off the lamina for the top of the lamina of S1. An intraoperative x-ray was taken with a marker and placed that confirmed our level. I then elevated remaining paravertebral muscles off the lamina and put a Inessa retractor in place. I released the ligamentum flavum off the underside of the L5 lamina on the left side. I thinned the lamina down with double-action rongeurs. I then perform a laminectomy using the 45 degree Kerrison rongeurs. I remove the ligamentum flavum in retrograde fashion with a 45 degree Kerrison rongeurs and open the lateral recess. I then retracted the S1 nerve root and the dura medial word finally able to find disc I pulled out the several pieces 1 very large piece of disc near the axilla of the S1 nerve root. The nerve was found to be completely decompressed I checked the foramen anteriorly and and posteriorly was free nerve with no more pressure. I then opened the opposite side that is the right side the same fashion using cautery and the elevated the paravertebral muscles off the lamina of L5 and the top of S1. I then used a bur to bur the bony elements posteriorly on both sides. The interspinous ligament between L5 and S1 was removed using sharp dissection and measurements were taken for a spacer. We ended up using a 10 mm spacer. Note that first we put amnionic membrane directly over the dura to prevent adhesions and put Gelfoam over the top of that I then placed my spark putty on both gutters. First a bur was used to break the outside cortex. Once this was done the spacer was then inserted followed by the insertion of the internal fixation device it was placed down on the spacer and the locking mechanisms were activated. This was seen on a lateral x-ray was found to be quite satisfactory. I then closed the lumbar fascia using [id number] suture with #1 Vicryl followed by closure of subcutaneous tissues with 2-0 V icryl in interrupted fashion. The skin was approximated using skin clips. Sterile dressings were applied. The patient was recovered in the OR moved to his hospital bed and taken to recovery in satisfactory condition. The end of operative summary on Daniel Watson. This is Dr. Tay dictating.
--- NOTE | 2023-10-29 14:14 | PCM.OPRPT ---
Report of Operation Date of Procedure: 10/29/23 Pre-Operative Diagnosis: herniated disc, L5-S1 Post-Operative Diagnosis: same Surgery/Procedure Performed:: #1 anterior lumbar interbody fusion L5-S1 CPT code 58126 #2 application of spine plate L5-S1 CPT code 33455/59 #3 insertion of anterior cage L5-S1 CPT code 71836 #4 bone marrow aspirate right iliac crest CPT code 94880 #5 bone allograft L5-S1 CPT code 45570 Surgeon: Co-Surgeons: Dr. Tay, Dr. Pedraza Type of Anesthesia: General Estimated Blood Loss (mL): 50 Description of Procedure: HPI: Patient is a 23-year-old male with L5-S1 lumbar disc herniation with neurologic deficits who was assessed by Dr. Tay and felt to be appropriate for anterior lumbar interbody fusion. Vascular surgery is requested to provide exposure and mobilization of the abdominal great vessels to facilitate the anterior portion of the procedure. Patient presents now for urgent discectomy with cage insert and fusion. Description of procedure: Upon obtaining form consent and verification correct patient procedure site patient was taken to the operating where he was placed under general anesthesia. He was then positioned prepped and draped in usual sterile fashion a time was performed. Bone marrow aspirate was obtained from the right iliac crest. Transverse incision was then made in the left lower quadrant and Bovie electrocautery was dissect down through subcutaneous tissue and self-retaining retractors put in position. Further dissection was then carried down to the fascia which was incised transversely with vertical relaxing incisions inferior medially and superior laterally. Next the rectus abdominis muscle was mobilized circumferentially with care taken to elevate the epigastric vessels with the muscle. This was then retracted medially and blunt dissection used to develop a plane between the posterior aspect of the abdominal wall and the peritoneum. Once the posterior sheath was dissected free from the peritoneum it was incised with Metzenbaum scissors facilitating further medial mobilization. After the abdominal contents had been mobilized over to the midline a wet lap sponge was placed in the position and the Omni retractor brought in the field and placed in position. The rectus muscle was then retracted laterally and the blades of the Omni retractor placed into position exposing the midline structures. The left iliac artery and vein were then mobilized and retracted further laterally. The middle sacral artery and vein were identified, ligated with clips, and then divided. Further blunt dissection then used to dissect free the anterior surface of the L5-S1 disc. Once satisfactory visualization was obtained with Dr. Tay scrubbed in and performed the discectomy and implantation which she will describe in further detail. After this was completed the vessels were inspected and found to be free from any injury. The abdominal contents were then allowed to return to their [place] position and the fascia of the anterior sheath reapproximated with strata fix suture in running fashion. The incision was then irrigated with saline and closed with 3-0 Vicryl followed by 4 Monocryl and Dermabond for the skin. At this point the patient was repositioned for posterior approach performed by Dr. Tay.
[2023-10-29 15:02] LABS: Bedside Glucose 112 mg/dL (74-106)
[2023-10-29] MEDS: Morphine 4 MG/ML Syringe IV ×2 (16:03→18:53)
[2023-10-29] MEDS: Cefazolin 1 GM/50 ML BAG IV (16:15)
[2023-10-29] MEDS: Lactated Ringers 1,000 ML 100 ML IV (17:16)
[2023-10-29] MEDS: oxyCODONE 5 MG Tablet PO (21:36)
[2023-10-30] VITALS (7 sets, daily range): BP systolic 106–121; BP diastolic 54–73; PULSE 64–94; RESP 16–18; TEMP 36.6–37.9; O2SAT 95–100
[2023-10-30] MEDS: Cefazolin 1 GM/50 ML BAG IV (00:14)
[2023-10-30] MEDS: oxyCODONE 5 MG Tablet PO ×5 (01:42→21:48)
[2023-10-30] MEDS: Acetaminophen 500 MG Tablet 1000 MG PO ×3 (06:31→21:06)
--- NOTE | 2023-10-30 11:57 | PCM.PN.HOSP ---
Subjective Subjective Doing well, no issues overnight. Has some numbness in the bottom of his foot but otherwise the pain prior to surgery has resolved now he just has back pain from surgery. He is ambulating very well and tolerating a diet with flatus but no bowel movement yet Objective Data Objective Data Vital Signs: Vital Signs Temp Pulse Resp BP Pulse Ox O2 Del Method O2 Flow Rate 98 F 70 18 109/68 100 Room Air 4 10/30/23 08:58 10/30/23 08:58 10/30/23 08:58 10/30/23 08:58 10/30/23 08:58 10/30/23 08:58 10/29/23 15:59 Oxygen Flow Rate (L/min) 4 Oxygen Delivery Method Room Air Weight: 195 lb 0.108 oz Body Mass Index (BMI) 21.9 Intake & Output: Intake and Output for Last 24 Hours 10/29/23 10/30/23 10/31/23 03:59 03:59 03:59 Intake Total 3400 / 3400 1400 / 1400 Output Total 3750 / 3750 1250 / 1250 Balance -350 / -350 150 / 150 Lab / Micro Data Labs: Laboratory Results - last 24 hr 10/29/23 14:44: POC Glucose 112 H Radiography Diagnostic Testing: Radiology Impression Spine X-Ray 10/29/23 09:25 IMPRESSION: Nondiagnostic intraoperative exam as described above. Electronically Signed: Trev Villegas MD at 19:09 EST , Spine X-Ray 10/29/23 09:40 IMPRESSION: Anterior fusion at L5-S1. Electronically Signed: Darrick Ordoñez DO at 22:12 EST , Spine X-Ray 10/29/23 10:37 IMPRESSION: Intraoperative lateral documentation view. Electronically Signed: Israel Villareal MD at 12:36 EST , Spine X-Ray 10/29/23 10:37 IMPRESSION: Single lateral view of the lumbar spine as described. Electronically Signed: Israel Villareal MD at 15:38 EST , Physical Exam Narrative General: Alert, Oriented x3, Cooperative, No apparent distress HEENT: Atraumatic, PERRLA, EOMI, Normocephalic Oral: Moist Mucosa Neck: Supple, No JVD Lungs: Clear to auscultation, Normal air movement, No rhonchi, No wheeze, No rales Cardiovascular: Regular rate, Regular Rhythm, Normal S1, Normal S2, No murmurs Abdomen: Soft, Non Tender, Non-Distended, No Hepato-splenomegaly Extremities: No edema, Capillary Refill Less than 3 Seconds Skin: Dressing CDI Musculoskeletal: No Tenderness to Palpation of Joints or Extremities Neurological: No focal neurological deficits, Motor Exam 5/5 strength throughout, Sensory exam intact to light touch and pain other than surrounding his left pinky toe Psych/Mental Status: Normal Affect, Appropriate Assessment & Plan Assessment/Plan (1) Status post lumbar spinal fusion: PLAN: Plan 1. Status post lumbar spinal fusion with laminectomy secondary to herniated disc on 10/29/2023 ? He was admitted prior and underwent a spinal injection which did temporarily relieve his back pain for couple of days and then his back pain significantly worsened with numbness in his left foot ? Tolerated surgery very well, he is ambulating and tolerating a liquid diet ? Pain management appears to be optimal as he is ambulating ? He is having bowel function with flatus but no bowel movement ? From medical perspective he is stable and okay for discharge DVT: Ambulation Charges/Coding Visit Charges Inpatient E&M: 77145 Subs Hosp L2
--- NOTE | 2023-10-30 12:12 | CASEMGMT ---
Readmission Note: Index: 10/10/23 - 10/14/23. Dx: Intractable Back Pain Readmission: 10/29/23. Dx: HNP L5 - S1. 360 Lumbar Fusion L5-S1 with Lt sided laminectomy. Pt with a history of lumbar spinal fusion, spinal stenosis, and lumbar disc herniation was admitted on the above noted dates for the corresponding dx?s. On Index admission, pt twisted his back wrong while he was lifting concrete. Pt came to the ED here and was given pain meds and an MRI was completed. He then had an epidural steroid injection on 10/14. Pt states to this RN CM at that time that he had 2 walkers at home and did not need a new walker, even with his noted height. Face to face with the pt at this time. Pt states that he was able to ambulate for some time without the use of any DME after his injection. Pt states that this wore off and he had to come into the hospital due to his pain. The pt was having severe sharp pains in his lower left back area where the injection was placed. He states that the pain ended up radiating down to his left leg and that it became numb down to his toes. Pt was in 9/10 pain. On readmission, pt was unable to move his heel off of the ground during Dr. Tay's examination. Pt then received surgery on 10/29/23. Pt underwent 360 Lumbar Fusion L5-S1 with Lt sided laminectomy. Pt states that he is feeling well after surgery and he is able to ambulate without any assistance. Dr. Tay to pt room during the readmission assessment and Dr. Tay states that the pt is healing well and that Dr Tay plans on advancing the pt diet tomorrow and wait for the pt to have a BM before being DC home. Pt is agreeable to this plan.
--- NOTE | 2023-10-30 13:04 | PCM.PN.ORT ---
Subjective Subjective Postop day #1. Daniel is doing very well. He has been up and walking around with no walker. He states that his left leg pain is all gone he still has some numbness in his foot I told him that that is the last thing to improve and I could take several weeks. His back pain and his abdomen pain has let up compared to yesterday. He still has high pole about bowel sounds so for now we will not allow him to eat just yet we will keep him on clear liquids. Regarding his strength it is already better in the S1 distribution. I am very pleased with his progress. I will see him again tomorrow. Objective Data Objective Data Vital Signs: Vital Signs Temp Pulse Resp BP Pulse Ox O2 Del Method O2 Flow Rate 98 F 70 18 109/68 100 Room Air 4 10/30/23 08:58 10/30/23 08:58 10/30/23 08:58 10/30/23 08:58 10/30/23 08:58 10/30/23 08:58 10/29/23 15:59 Oxygen Flow Rate (L/min) 4 Oxygen Delivery Method Room Air Weight: 195 lb 0.108 oz Body Mass Index (BMI) 21.9 Intake & Output: Intake and Output for Last 24 Hours 10/28/23 10/29/23 10/30/23 23:59 23:59 23:59 Intake Total 3050 / 3050 1750 / 1750 Output Total 3750 / 3750 1250 / 1250 Balance -700 / -700 500 / 500 Lab / Micro Data Labs: Laboratory Results - last 24 hr 10/29/23 14:44: POC Glucose 112 H Radiography Diagnostic Testing: Radiology Impression Spine X-Ray 10/29/23 09:25 IMPRESSION: Nondiagnostic intraoperative exam as described above. Electronically Signed: Trev Villegas MD at 19:09 EST , Spine X-Ray 10/29/23 09:40 IMPRESSION: Anterior fusion at L5-S1. Electronically Signed: Darrick Ordoñez DO at 22:12 EST , Spine X-Ray 10/29/23 10:37 IMPRESSION: Single lateral view of the lumbar spine as described. Electronically Signed: Israel Villareal MD at 15:38 EST ,
[2023-10-31] MEDS: oxyCODONE 5 MG Tablet PO ×3 (01:32→10:23)
[2023-10-31 01:37] VITALS: BP 136/65; PULSE 83; RESP 16; TEMP 37.6; O2SAT 98
[2023-10-31] MEDS: Acetaminophen 500 MG Tablet 1000 MG PO ×2 (06:14→13:25)
[2023-10-31 06:16] VITALS: BP 105/63; PULSE 62; RESP 16; TEMP 37.3; O2SAT 97
[2023-10-31 07:32] VITALS: O2SAT 95
[2023-10-31 08:59] LABS: Absolute Lymphocyte Count 1.35 X10^3/uL (0.83-4.51); Absolute Neutrophil Count 9.1 X10^3/uL (2.0-7.7); Basophil# 0.03 X10^3/uL; Basophil% 0.2 % (0-1); Eosinophil# 0.04 X10^3/uL; Eosinophils% 0.3 % (0-5); Hematocrit 39.6 % (40-54); Lymphocyte # 1.35 X10^3/ul (0.83-4.51); Lymphocyte % 10.6 % (19-41); Mean Corp Hgb Conc 32.8 g/dL (32-36); Mean Corpuscular Hgb 28.8 pg (27.0-32.0); Mean Corpuscular Volume 87.6 fL (80-94); Monocyte% 17.3 % (0-10); NRBC Flagged by Analyzer 0 % (0-5); Neutrophil # 9.05 X10^3/uL (2.7-7.7); Neutrophil % 71.1 % (47-70); POSITIVE DIFFERENTIAL YES; Platelet Count 211 K/mm3 (150-450); RBC Distribution Width CV 12.9 % (11.6-14.6); RBC Distribution Width SD 41.5 fl (35.1-43.9); Red Blood Count 4.52 M/mm3 (4.6-6.2); White Blood Count 12.7 K/mm3 (4.4-11.0)
[2023-10-31 09:02] LABS: Differential Indicated SCAN CRITERIA MET
[2023-10-31 09:25] LABS: Anion Gap 3 (5-15); BUN 9 mg/dL (7-18); BUN/Creat Ratio 9.6 RATIO (10-20); Calcium,Total 9.3 mg/dL (8.5-10.1); Chloride 105 mmol/L (98-107); Creatinine, Serum 0.94 mg/dL (0.70-1.30); EST Glomerular Filtration Rate 107 mL/min (>60); Est Glom Filt Rate - Afr Amer 129 mL/min (>60); Estimated Creatinine Clearance 154.22 ml/min; Glucose 86 mg/dL (74-106); Potassium 3.7 mmol/L (3.5-5.1); Sodium Level 138 mmol/L (136-145)
[2023-10-31 09:44] LABS: Differential Comment SCANNED; Hypochromasia May foll
[2023-10-31 11:47] VITALS: BP 114/74; PULSE 86; RESP 18; TEMP 36.8; O2SAT 94
--- NOTE | 2023-10-31 13:04 | DCINST_ITS ---
Discharge Instructions Activity May shower in (days): 4 May resume sexual activity in: 4-6 weeks Lifting Restrictions: 15# Dressing / Incision Remove Dressing in: 3 days Follow Up Care Test Results: Test results from this visit will be discussed in further detail at your follow- up appointment, if applicable. Discharge Plan Admission Admit Date/Time: 10/29/23 05:31 Primary Reason for Your Visit: back surgery Attending Provider: Ever Tay Primary Care Provider: Care Physician,No Primary Consulting Providers: Jigna Cervantes; Fercho Ariza; Gini Butts; Gini Hooper; Harish Howe; Dori Pascual; Marilyn Guido; Declan Dailey; Declan Nguyen; Darien Cohn; Jimmie Ybarra; Mellisa Velazquez; Carlos George; Fer Perales; Thomas Santiago; Elida Monet; Jeff Pierce; Saba Bhatti; Vinod Still; Wu Sahu; Franc Huff; Niesha Pack; Peter Del Cid; Alva Levin NP; Aldo Yadav Discharge Orders/Prescriptions Prescriptions: No Action prednisone 20 mg tablet 20 mg PO DAILY oxycodone-acetaminophen 5-325 mg tablet 1 tab PO Q6H PRN (Reason: pain) 10 Days Qty: 40 0RF Referrals / Follow Up: Care Physician,No Primary [Primary Care Provider] - Disposition Disposition (needs filled in before D/C Order can be placed): Home, Self Care
--- NOTE | 2023-10-31 13:06 | DS.PCM_ITS ---
Providers Date of Admission: 10/29/23 Primary Care Physician: Subha Primary Care Phys Attending Physician: This is discharge summary on Daniel Watson. This patient was admitted 2 days ago on Saturday. He underwent 360 degree fusion at the L5-S1 level. He is doing qu ite well and reports complete relief of his left leg pain. His dressings are dry today. He was given directions regarding his activities and he is return to see me in about 12 days. The pharmacy will bring his pain medicine up prior to his discharge. I gave him directions regarding showering. He already has an appointment to see me. This is the end of discharge summary on Daniel Watson. This is Dr. Tay dictating. Consultations 10/29/23 15:47 Consult: Hospitalist Routine Consulting Provider: [facility] Reason for Consult: Medical Management EMERGENT Consult: No MD Notified: Yes Date Notified: 10/29/23 Time Notified: 17:00 Method of Notification: Text Comments:: dr saleem aware per dr. hernandez Reason For Visit: HNP LS/S1 Diagnosis Discharge Diagnosis (1) Status post lumbar spinal fusion: Status: Acute Code(s): Z98.1 - Arthrodesis status Medications at Discharge Home Medications prednisone 20 mg tablet 20 mg PO DAILY INFLAMMATION 10/25/23 oxycodone-acetaminophen 5 mg-325 mg tablet 1 tab PO Q6H PRN pain 10 days #40 tabs 10/31/23 Weight / BMI Weight Weight: 195 lb 0.108 oz Body Mass Index (BMI) 21.9 ABG / Lab / Microbiology Data 10/31/23 08:20 10/31/23 08:20 Laboratory: Laboratory Results - last 24 hr 10/31/23 08:20: WBC 12.7 H, RBC 4.52 L, Hgb 13.0, Hct 39.6 L, MCV 87.6, MCH 28.8, MCHC 32.8, RDW Std Deviation 41.5, RDW Coeff of Sherley 12.9, Plt Count 211, MPV 10.0, Immature Gran % (Auto) 0.500, Neut % (Auto) 71.1 H, Lymph % (Auto) 10.6 L, [place] % (Auto) 17.3 H, Eos % (Auto) 0.3, Baso % (Auto) 0.2, Absolute Neuts (auto) 9.1 H, Absolute Lymphs (auto) 1.35, Nucleated RBC % 0, Differential Comment SCANNED, Diff Path Review January foll, Hypochromasia May foll, Sodium 138, Potassium 3.7, Chloride 105, Carbon Dioxide 30.0, Anion Gap 3 L, BUN 9, Creatinine 0.94, Estim Creat Clear Calc 154.22, Est GFR (MDRD) Af Amer 129, Est GFR (MDRD) Non-Af 107, BUN/Creatinine Ratio 9.6 L, Glucose 86, Calcium 9.3 D/C Instructions May shower in (days): 4 May resume sexual activity in: 4-6 weeks Meaningful Use Info Meaningful Use Diagnoses (Choose all that apply): None applicable Discharge Plan Admission Admit Date/Time: 10/29/23 05:31 Primary Reason for Your Visit: back surgery Attending Provider: Ever Tay Primary Care Provider: Care Physician,No Primary Consulting Providers: Jigna Cervantes; Fercho Ariza; Gini Butts; Gini Hooper; Harish Howe; Dori Pascual; Marilyn Guido; Declan Dailey; Declan Nguyen; Darien Cohn; Jimmie Ybarra; Mellisa Velazquez; Carlos George; Fer Perales; Thomas Santiago; Elida Saleem; Jeff Pierce; Saba Bhatti; Vinod Hernandez; Wu Sahu; Franc Huff; Niesha Pack; Peter Del Cid; Alva Levin NP; Aldo Yadav PA Discharge Orders/Prescriptions Prescriptions: No Action prednisone 20 mg tablet 20 mg PO DAILY oxycodone-acetaminophen 5-325 mg tablet 1 tab PO Q6H PRN (Reason: pain) 10 Days Qty: 40 0RF Referrals / Follow Up: Care Physician,No Primary [Primary Care Provider] - Disposition Disposition (needs filled in before D/C Order can be placed): Home, Self Care
[2023-10-31 13:22] VITALS: BP 120/67; PULSE 72; RESP 18; TEMP 36.9; O2SAT 98
[2023-11-01 13:35] LABS: Pathologist Review Reviewed
== END 2023-10-31 13:40 | disposition home or self-care (01) | DRG 455 ==
LOC: ACINP 05:31 → MS3 17:04
PROVIDERS: Anesthesiology; Family Medicine; Admitting Provider Orthopaedic Surgery; Referring Provider Orthopaedic Surgery; Visit Provider Orthopaedic Surgery
PROC: 0SG30A0 Fusion of Lumbosacral Joint with Interbody Fusion Device, Anterior Approach, Anterior Column, Open Approach (ICD-10-PCS; principal; 2023-10-29 07:00)
DX: M51.27 Other intervertebral disc displacement, lumbosacral region (principal); F17.210 Nicotine dependence, cigarettes, uncomplicated
CPT/HCPCS: 36415; 72020; 80048; 82962; 83735; 85025; 86703; 86708; 88304; 93005; 94668; A4648; C1713; J7120; J2405; J3475